=== PATIENT | female | born 1940 | race Hispanic/Latino ===

== ENCOUNTER 2016-10-29 10:04 | Day surgery (SDC) | payer MEDICARE ==
[2016-10-29] MEDS ORDERED: PROLIA SUB-Q ONE (10:23)
[2016-10-29 10:30] VITALS: BP 128/68
== END 2016-10-29 11:07 | disposition home or self-care (01) ==
LOC: OPU 10:04
PROVIDERS: ATTEND Internal Medicine
DX: M81.0 Age-related osteoporosis without current pathological fracture (principal)
CPT/HCPCS: 96372; J0897

== ENCOUNTER 2016-12-26 16:57 | Inpatient (IN) | payer MEDICARE ==
[2016-12-26] MEDS ORDERED: ZOFRAN IV ONE (19:42)
[2016-12-26] MEDS ORDERED: MORPHINE IV ONE (19:42)
--- NOTE | 2016-12-26 19:57 | Emergency Department Report ---
ED Fall HPI - General Chief Complaint: Fall Stated Complaint: RT HIP PAIN Time Seen by Provider: 12/26/16 19:37 Source: patient, EMS Mode of arrival: Ambulatory Limitations: No Limitations - History of Present Illness Initial Comments: 76-year-old female with a past medical history rheumatoid arthritis, and osteoporosis presents to the hospital with complaints of right hip pain status post fall. Patient slipped and fell while going down the stairs today. Complaining of 10/10 right hip pain with spasm. Unable to amylase since fall. Denies head trauma, LOC, or other injury. Patient has seen Dr. Quach orthopedic surgeon in the past for left rotator cuff surgery in 2010. - Related Data Home Medications Medication Instructions Recorded Confirmed Last Taken Biotin 1,000 mcg PO DAILY 04/18/16 12/26/16 10/26/16 1000mg Cholecalciferol (Vitamin D3) 1,000 unit PO DAILY 04/18/16 12/26/16 12/26/16 [Vitamin D3] Folic Acid 1 mg PO QDAY 04/18/16 12/26/16 12/26/16 Methotrexate Sodium [Methotrexate] 2.5 mg PO QMONTH 04/18/16 12/26/16 12/26/16 Prednisone [Prednisone] 5 mg PO DAILY 04/18/16 12/26/16 12/26/16 Timolol 0.5% [Timoptic] 1 drop OD DAILY 04/18/16 12/26/16 12/26/16 Tramadol HCl [traMADol] 50 mg PO BID PRN 04/18/16 12/26/16 12/26/16 Allergies Allergy/AdvReac Type Severity Reaction Status Date / Time celecoxib [From Celebrex] Allergy Rash Verified 04/18/16 10:37 Sulfa (Sulfonamide Allergy Rash Verified 04/18/16 10:37 Antibiotics) hydrocodone AdvReac Shortness Verified 04/18/16 10:37 of Breath oxycodone AdvReac Shortness Verified 04/18/16 10:37 of Breath ED Review of Systems ROS: Stated complaint: RT HIP PAIN Other details as noted in HPI Comment: All other systems reviewed and negative Other: Constitutional: No fevers chills or weight loss Eyes: No eye pain visual changes or discharge ENT: No ear pain or throat pain Neck: Denies pain Respiratory: Denies cough wheezing shortness of breath Cardiovascular: Denies chest pain, palpitations, syncope GI: Denies abdominal pain, nausea, vomiting, diarrhea : Denies dysuria Musculoskeletal: as per hpi Skin: Denies rash, lesions, erythema Neurologic: Denies headache, numbness, weakness Psychiatric: Denies suicidal ideation, hallucinations ED Past Medical Hx - Past Medical History Previous Medical History?: Yes Hx Arthritis: Yes (rheumatoid) Additional medical history: RA, osteoporosis, bilat glaucoma - Surgical History Additional Surgical History: L rotator cuff, 2010 - Social History Smoking Status: Never Smoker - Medications Home Medications: Home Medications Medication Instructions Recorded Confirmed Last Taken Type Biotin 1,000 mcg PO DAILY 04/18/16 12/26/16 10/26/16 History 1000mg Cholecalciferol (Vitamin D3) 1,000 unit PO DAILY 04/18/16 12/26/16 12/26/16 History [Vitamin D3] Folic Acid 1 mg PO QDAY 04/18/16 12/26/16 12/26/16 History Methotrexate Sodium [Methotrexate] 2.5 mg PO QMONTH 04/18/16 12/26/16 12/26/16 History Prednisone [Prednisone] 5 mg PO DAILY 04/18/16 12/26/16 12/26/16 History Timolol 0.5% [Timoptic] 1 drop OD DAILY 04/18/16 12/26/16 12/26/16 History Tramadol HCl [traMADol] 50 mg PO BID PRN 04/18/16 12/26/16 12/26/16 History ED Physical Exam - General Limitations: Physical Limitation - Other Other exam information: General: No limitations, patient is alert in no acute distress Head exam: Atraumatic, normocephalic Eyes exam: Normal appearance ENT: Moist mucous membrane, normal oropharynx Neck exam: Normal inspection, full range of motion Respiratory exam: Clear to auscultation bilateral, no wheezes, rales, crackles Cardiovascular: Normal rate and rhythm, normal heart sounds Abdomen: Soft, nondistended, and nontender, with normal bowel sounds, no rebound, or guarding Extremity: Right hip tenderness to palpation. Right leg is shortened and externally rotated. 2+ DP pulse. Limited movement due to pain Back: Normal Inspection, full range of motion, no tenderness Neurologic: Alert, oriented x3, cranial nerves intact, no motor or sensory deficit ED Course Vital Signs 12/26/16 12/26/16 12/26/16 17:34 17:41 18:00 Temperature 98.5 F Pulse Rate 80 Respiratory 18 Rate Blood Pressure 171/99 171/99 158/77 Blood Pressure [Left] O2 Sat by Pulse 90 97 Oximetry 12/26/16 12/26/16 12/26/16 18:19 19:00 20:00 Temperature Pulse Rate Respiratory 18 Rate Blood Pressure 168/83 175/72 Blood Pressure [Left] O2 Sat by Pulse 99 96 96 Oximetry 12/26/16 20:30 Temperature Pulse Rate 97 H Respiratory 18 Rate Blood Pressure Blood Pressure 151/85 [Left] O2 Sat by Pulse 100 Oximetry - Reevaluation(s) Reevaluation #1: 12/26/16 19:56 Patient reports allergies to hydrocodone and oxycodone and states she has had morphine and tolerated it in the past. Morphine and Zofran ordered. - Consultations Consultation #1: 12/26/16 19:[address] Marte with orthopedic surgery. Will consult for hip fracture recommended admission to hospital ED Medical Decision Making - Lab Data Result diagrams: 12/26/16 22:59 12/26/16 19:49 Lab Results 12/26/16 12/26/16 12/26/16 Range/Units 19:49 19:49 22:59 WBC TNR 16.6 H RBC TNR 4.75 Hgb TNR 14.6 H Hct TNR 44.0 H MCV TNR 93 MCH TNR 31 MCHC TNR 33 RDW TNR 15.3 H Plt Count TNR 187 Sodium 138 (137-145) mmol/L Potassium 3.3 L (3.6-5.0) mmol/L Chloride 100.3 (98-107) mmol/L Carbon Dioxide 24 (22-30) mmol/L Anion Gap 17 mmol/L BUN 11 (7-17) mg/dL Creatinine 0.7 (0.7-1.2) mg/dL Estimated GFR > 60 ml/min BUN/Creatinine Ratio 15.71 % Glucose 120 H (65-100) mg/dL Calcium 8.6 (8.4-10.2) mg/dL - EKG Data -: EKG Interpreted by Me (nsr rate 86, nonspecific st/t abnl) - EKG Data When compared to previous EKG there are: previous EKG unavailable - Radiology Data Radiology results: image reviewed (right femoral neck fxt.) - Medical Decision Making Plan to admit patient to hospital for hip fracture. Orthopedic consulted - Differential Diagnosis fracture, contusion, sprain Critical Care Time: No Critical care attestation.: If time is entered above; I have spent that time in minutes in the direct care of this critically ill patient, excluding procedure time. ED Disposition Clinical Impression: Fracture of femoral neck, right, Hypokalemia Disposition: OP ADMITTED IP TO THIS HOSP Is pt being admited?: Yes Does the pt Need Aspirin: No Condition: Stable Time of Disposition: 19:58 (Dr. Johns/[facility])
[2016-12-26 20:18] LABS: Anion Gap 17 mmol/L; BUN/Creatinine Ratio 15.71; Blood Urea Nitrogen 11 mg/dL (7-17); Calcium 8.6 mg/dL (8.4-10.2); Carbon Dioxide 24 mmol/L (22-30); Chloride 100.3 mmol/L (98-107); Glucose 120 mg/dL (65-100); Potassium 3.3 mmol/L (3.6-5.0); Sodium 138 mmol/L (137-145)
[2016-12-26] MEDS ORDERED: K-DUR PO ONE ×2 (20:39→20:41)
[2016-12-26 21:30] LABS: Red Blood Count TNR M/mm3 (3.65-5.03); White Blood Count TNR K/mm3 (4.5-11.0)
[2016-12-26 21:31] LABS: Hematocrit TNR % (30.3-42.9); Hemoglobin TNR gm/dl (10.1-14.3); Mean Corpuscular HGB Conc TNR % (30-34); Mean Corpuscular Hemoglobin TNR pg (28-32); Mean Corpuscular Volume TNR fl (79-97); Red Cell Distribution Width TNR % (13.2-15.2)
[2016-12-26 21:32] LABS: Mean Platelet Volume TNR fl (6-12); Platelet Count TNR K/mm3 (140-440)
[2016-12-26] MEDS: HEPARIN SUB-Q SCH (22:00)
[2016-12-26] MEDS ORDERED: ZOFRAN IV PRN (22:09)
[2016-12-26] MEDS ORDERED: TYLENOL PO PRN (22:09)
--- NOTE | 2016-12-26 22:17 | History and Physical Report ---
History of Present Illness Date of examination: 12/26/16 Date of admission: 12/26/16 20:05 Chief complaint: Right hip pains History of present illness: Patient is a 76 yo woman with a history of RA on MTX and steroids, osteoporosis and glaucoma who presents with acute severe nonradiating right hip pain after a mechanical fall down her steps at home. Patient has no prodromal symptoms. She denies any chest pain or sob. After the fall on her right hip she cannot get up and had severe pain. She was found have right hip fracture and Ortho was called but they want the hospitalist to admit. Past History Past Medical History: other (as hpi) Past Surgical History: cataract removal, Other (left rotator cuff surgery, back surgery) Social history: full code. denies: smoking, alcohol abuse, prescription drug abuse, IV drug use Family history: no significant family history Medications and Allergies Allergies Allergy/AdvReac Type Severity Reaction Status Date / Time celecoxib [From Celebrex] Allergy Rash Verified 04/18/16 10:37 Sulfa (Sulfonamide Allergy Rash Verified 04/18/16 10:37 Antibiotics) hydrocodone AdvReac Shortness Verified 04/18/16 10:37 of Breath oxycodone AdvReac Shortness Verified 04/18/16 10:37 of Breath Home Medications Medication Instructions Recorded Confirmed Last Taken Type Biotin 1,000 mcg PO DAILY 04/18/16 12/26/16 10/26/16 History 1000mg Cholecalciferol (Vitamin D3) 1,000 unit PO DAILY 04/18/16 12/26/16 12/26/16 History [Vitamin D3] Folic Acid 1 mg PO QDAY 04/18/16 12/26/16 12/26/16 History Methotrexate Sodium [Methotrexate] 2.5 mg PO QMONTH 04/18/16 12/26/16 12/26/16 History Prednisone [Prednisone] 5 mg PO DAILY 04/18/16 12/26/16 12/26/16 History Timolol 0.5% [Timoptic] 1 drop OD DAILY 04/18/16 12/26/16 12/26/16 History Tramadol HCl [traMADol] 50 mg PO BID PRN 04/18/16 12/26/16 12/26/16 History Active Meds: Active Medications Acetaminophen (Tylenol) 650 mg PO Q6H PRN PRN Reason: Non Cardiac Pain or Temp>100.5 Methotrexate (Methotrexate(Dose Weekly Only)) 2.5 mg PO QMONTH [facility]ENNY Miscellaneous Medication (Cholecalciferol (Vitamin D3) [Vitamin D3]) 1,000 unit PO DAILY [facility]ENNY Miscellaneous Medication (Folic Acid [Folic Acid]) 1 mg PO QDAY [facility] Ondansetron HCl (Zofran) 4 mg IV Q4H PRN PRN Reason: Nausea And Vomiting Prednisone (Deltasone) 5 mg PO DAILY [facility] Timolol Maleate (Timoptic) drops OD DAILY [facility] Tramadol HCl (Ultram) 50 mg PO BID PRN PRN Reason: Analgesia Review of Systems All systems: negative (as HPI and all other ROS reviewed and negative.) Exam - Physical Exam Narrative exam: GEN: WDWN, NAD, AWAKE, ALERT, ORIENTATED 3 HEENT: NCAT, PERRL, EOMI, OP CLEAR NECK: SUPPLE, NO THYROMEGALY, NO JVD, NO LAD CVS: RRR, NORMAL S1S2 LUNGS/CHEST: CTA B, NORMAL CHEST EXPANSION B, GOOD AIR ENTRY B ABD: SOFT NTND, GBS, NO REBOUND OR GUARDING EXT/SKIN: NO SIGNIFICANT EDEMA OR RASH MSK: LROM right hip, righ leg is shortened and turned outward NEURO: CN 2-12 GROSSLY INTACT, NO new FOCAL DEFICITS PSY: CALM - Constitutional Vitals: Temp Pulse Resp BP Pulse Ox 98.5 F 97 H 18 151/85 100 12/26/16 17:41 12/26/16 20:30 12/26/16 20:30 12/26/16 20:30 12/26/16 20:30 Results - Labs CBC & Chem 7: 12/26/16 19:49 12/26/16 19:49 - Imaging and Cardiology Chest x-ray: other (hip) Assessment and Plan Patient is a 76 yo woman with a history of RA on MTX and steroids, osteoporosis and glaucoma who presents with acute severe nonradiating constant right hip pain after a mechanical fall down her steps at home. There is no aggravating or relieving factors. Patient had no prodromal symptoms. She denies any chest pain or sob. No head trauma. After the fall on her right hip she cannot get up and had severe pain. She was found have right hip fracture and Ortho was called but they want the hospitalist to admit. -Right hip fracture: surgery -Accelerated bp without dx: prn iv hydralazine and control pain -Leukocytosis on chronic steroids: continue to monitor -hypokalemia: replace -dvt prophylaxis; sq heparin
[2016-12-26] MEDS: K-DUR PO ONE ×2 (22:34→22:57)
[2016-12-26] MEDS: FOLVITE PO SCH (22:34)
[2016-12-26] MEDS: ULTRAM PO PRN (22:35)
[2016-12-26] MEDS: APRESOLINE IV PRN (22:35)
[2016-12-26] MEDS: DELTASONE PO SCH (22:37)
[2016-12-26] MEDS: VITAMIN D3 PO SCH (22:37)
[2016-12-26 23:14] LABS: Hemoglobin 14.6 gm/dl (10.1-14.3); Mean Corpuscular HGB Conc 33 % (30-34); Mean Corpuscular Hemoglobin 31 pg (28-32); Mean Corpuscular Volume 93 fl (79-97); Platelet Count 187 K/mm3 (140-440); Red Blood Count 4.75 M/mm3 (3.65-5.03); Red Cell Distribution Width 15.3 % (13.2-15.2); White Blood Count 16.6 K/mm3 (4.5-11.0)
[2016-12-27] MEDS ORDERED: TORADOL IV ONE ×2 (05:17→09:53)
[2016-12-27 05:51] LABS: Hematocrit 43.1 % (30.3-42.9); Hemoglobin 14.1 gm/dl (10.1-14.3); Mean Corpuscular HGB Conc 33 % (30-34); Mean Corpuscular Hemoglobin 31 pg (28-32); Mean Corpuscular Volume 94 fl (79-97); Platelet Count 185 K/mm3 (140-440); White Blood Count 16.3 K/mm3 (4.5-11.0)
[2016-12-27 06:00] LABS: INR 1.08 (0.87-1.13)
[2016-12-27 06:01] LABS: Partial Thromboplastin Time 27.5 Sec. (24.2-36.6)
[2016-12-27 06:16] LABS: Anion Gap 20 mmol/L; Blood Urea Nitrogen 9 mg/dL (7-17); Calcium 8.1 mg/dL (8.4-10.2); Carbon Dioxide 21 mmol/L (22-30); Chloride 105.6 mmol/L (98-107); Glucose 123 mg/dL (65-100); Potassium 3.9 mmol/L (3.6-5.0); Sodium 143 mmol/L (137-145)
[2016-12-27] MEDS ORDERED: TORADOL ONE (07:40)
[2016-12-27] MEDS ORDERED: MORPHINE ONE (07:40)
[2016-12-27] MEDS ORDERED: ANCEF/STERILE WATER 2 GM/20 ML 2 GM/20 ML SYRINGE IV ONE (07:41)
[2016-12-27] MEDS ORDERED: NACL 0.9% 100 ML ONE ×3 (07:44→10:01)
[2016-12-27] MEDS ORDERED: TRANEXAMIC ACID ONE (07:44)
[2016-12-27] MEDS: NACL 0.9% 1000 ML 1,000 ML IV SCH ×2 (07:50)
[2016-12-27] MEDS ORDERED: SUBLIMAZE ONE (08:40)
[2016-12-27] MEDS ORDERED: DIPRIVAN 10 MG/ML IV ONE (08:40)
[2016-12-27] MEDS ORDERED: XYLOCAINE MPF 2% ONE (08:41)
[2016-12-27] MEDS ORDERED: NACL 0.9% 1000 ML 1,000 ML ONE (08:59)
--- NOTE | 2016-12-27 09:04 | Anesthesia Day of Surgery ---
Anesthesia Day of Surgery - Day of Surgery Patient Examined: Yes Patient H&P Reviewed: Yes Patient is NPO: Yes
--- NOTE | 2016-12-27 09:04 | Anesthesia Consultation ---
Anesthesia Consult and Med Hx Date of service: 12/27/16 - Airway Anesthetic Teeth Evaluation: Good ROM Head & Neck: Adequate Mental/Hyoid Distance: Adequate Mallampati Class: Class I Intubation Access Assessment: Probably Good - Pulmonary Exam CTA: Yes - Cardiac Exam Cardiac Exam: RRR - Pre-Operative Health Status ASA Pre-Surgery Classification: ASA3 Proposed Anesthetic Plan: General - Pulmonary Hx Smoking: No - Cardiovascular System Hx Hypertension: Yes - Central Nervous System Hx Neuromuscular Disorder: Yes (RA) Hx Psychiatric Problems: Yes - Other Systems Hx Cancer: No
[2016-12-27] MEDS ORDERED: VERSED ONE (09:16)
[2016-12-27] MEDS ORDERED: ZOFRAN ONE (09:35)
[2016-12-27] MEDS ORDERED: DECADRON ONE (09:35)
[2016-12-27] MEDS ORDERED: TRANEXAMIC ACID IV ONE (09:50)
[2016-12-27] MEDS ORDERED: NACL 0.9% IV ONE ×2 (09:50→09:53)
[2016-12-27] MEDS ORDERED: WATER FOR IRRIG STERILE IR ONE (09:53)
[2016-12-27] MEDS ORDERED: MARCAINE-EPI 0.5%-1:200,000 INFILTRATI ONE ×2 (09:53)
[2016-12-27] MEDS ORDERED: NACL 0.9% IR ONE (09:53)
[2016-12-27] MEDS ORDERED: MORPHINE IM ONE (09:53)
--- NOTE | 2016-12-27 09:58 | XRay Report ---
RIGHT HIP, 2 VIEWS HISTORY: Right hip pain after fall. FINDINGS: Mild osteopenia is suspected. A transverse fracture is identified through the mid to distal right femoral neck with 0.5 cm superolateral displacement. The right femoral head remains well-seated within the right acetabulum. No pelvic fracture is detected. Lower lumbar fusion changes at L5-S1 are noted. IMPRESSION: Right femoral neck fracture.
[2016-12-27] MEDS ORDERED: NEO SYNEPHRINE ONE (10:01)
--- NOTE | 2016-12-27 10:43 | Progress Note ---
Assessment and Plan Assessment and plan: Patient is a 76 yo woman with a history of RA on MTX and steroids, osteoporosis and glaucoma who presents with acute severe nonradiating constant right hip pain after a mechanical fall down her steps at home. She was found have right femoral neck fracture and Ortho was consulted. She had right hip arthroplasty today. -Right hip femoral neck fracture: Status post cemented right hip hemiarthroplasty. We will consult physical therapy. -Accelerated hypertension without dx: prn iv hydralazine and control pain -Leukocytosis on chronic steroids: continue to monitor -hypokalemia: replace -dvt prophylaxis; sq heparin History Interval history: Patient seen and examined. Medical records and medication list reviewed. No acute event overnight noted by the RN. Patient denies any chest pain or difficulty breathing. Patient has tolerated the surgery today. Discussed plan of care at bedside with patient. Hospitalist Physical - Physical exam Narrative exam: GENERAL: Elderly white female lying on bed appeared to be in no discomfort. HEENT: Normocephalic. Atraumatic. No conjunctival congestion or icterus. Patient has moist mucous membranes. NECK: Supple. Trachea midline. CHEST/LUNGS: Clear to auscultated bilaterally, breathing nonlabored. No wheezes crackles or rhonchi. HEART/CARDIOVASCULAR: Regular in rate and rhythm. S1 and S2 positive. ABDOMEN: Abdomen is soft, nontender. Patient has normal bowel sounds. SKIN: There is no rash. Warm and dry. NEURO: No focal motor deficit. Follows command. MUSCULOSKELETAL: Wound dressing along the lateral side of right hip joint with restricted right hip joint movement EXTRIMITY: No edema, no cyanosis or clubbing. PSYCH: Cooperative. - Constitutional Vitals: Temp Pulse Resp BP Pulse Ox 98.9 F 101 H 16 169/87 95 12/27/16 08:50 12/27/16 09:00 12/27/16 09:00 12/27/16 09:00 12/27/16 10:24 Results - Labs CBC & Chem 7: 12/27/16 05:05 12/27/16 05:05 Labs: Laboratory Last Values WBC 16.3 K/mm3 (4.5-11.0) H 12/27/16 05:05 RBC 4.60 M/mm3 (3.65-5.03) 12/27/16 05:05 Hgb 14.1 gm/dl (10.1-14.3) 12/27/16 05:05 Hct 43.1 % (30.3-42.9) H 12/27/16 05:05 MCV 94 fl (79-97) 12/27/16 05:05 MCH 31 pg (28-32) 12/27/16 05:05 MCHC 33 % (30-34) 12/27/16 05:05 RDW 15.0 % (13.2-15.2) 12/27/16 05:05 Plt Count 185 K/mm3 (140-440) 12/27/16 05:05 PT 13.9 Sec. (12.2-14.9) 12/27/16 05:05 INR 1.08 (0.87-1.13) 12/27/16 05:05 APTT 27.5 Sec. (24.2-36.6) 12/27/16 05:05 Sodium 143 mmol/L (137-145) 12/27/16 05:05 Potassium 3.9 mmol/L (3.6-5.0) 12/27/16 05:05 Chloride 105.6 mmol/L (98-107) 12/27/16 05:05 Carbon Dioxide 21 mmol/L (22-30) L 12/27/16 05:05 Anion Gap 20 mmol/L 12/27/16 05:05 BUN 9 mg/dL (7-17) 12/27/16 05:05 Creatinine 0.6 mg/dL (0.7-1.2) L 12/27/16 05:05 Estimated GFR > 60 ml/min 12/27/16 05:05 BUN/Creatinine Ratio 15.00 % 12/27/16 05:05 Glucose 123 mg/dL (65-100) H 12/27/16 05:05 Calcium 8.1 mg/dL (8.4-10.2) L 12/27/16 05:05
--- NOTE | 2016-12-27 11:38 | Consultation ---
History of Present Illness - [facility] Consult date: 12/27/16 Consult reason: fracture History of present illness: 76 yo woman with a history of RA on MTX and steroids, osteoporosis and glaucoma who presents with acute severe nonradiating right hip pain after a mechanical fall down her steps at home. Patient has no prodromal symptoms. She denies any chest pain or sob. After the fall on her right hip she cannot get up and had severe pain. X-rays taken in the emergency room reveal a displaced right femoral neck fracture. Consulted regarding treatment for her fractured right hip. Past History Past Medical History: other (as hpi) Past Surgical History: cataract removal, Other (left rotator cuff surgery, back surgery) Social history: full code. denies: smoking, alcohol abuse, prescription drug abuse, IV drug use Family history: no significant family history Medications and Allergies Allergies Allergy/AdvReac Type Severity Reaction Status Date / Time celecoxib [From Celebrex] Allergy Rash Verified 04/18/16 10:37 Sulfa (Sulfonamide Allergy Rash Verified 04/18/16 10:37 Antibiotics) hydrocodone AdvReac Shortness Verified 04/18/16 10:37 of Breath oxycodone AdvReac Shortness Verified 04/18/16 10:37 of Breath Home Medications Medication Instructions Recorded Confirmed Last Taken Type Biotin 1,000 mcg PO DAILY 04/18/16 12/26/16 10/26/16 History 1000mg Cholecalciferol (Vitamin D3) 1,000 unit PO DAILY 04/18/16 12/26/16 12/26/16 History [Vitamin D3] Folic Acid 1 mg PO QDAY 04/18/16 12/26/16 12/26/16 History Methotrexate Sodium [Methotrexate] 2.5 mg PO QMONTH 04/18/16 12/26/16 12/26/16 History Prednisone [Prednisone] 5 mg PO DAILY 04/18/16 12/26/16 12/26/16 History Timolol 0.5% [Timoptic] 1 drop OD DAILY 04/18/16 12/26/16 12/26/16 History Tramadol HCl [traMADol] 50 mg PO BID PRN 04/18/16 12/26/16 12/26/16 History Active Meds: Active Medications Acetaminophen (Tylenol) 650 mg PO Q6H PRN PRN Reason: Non Cardiac Pain or Temp>100.5 Cholecalciferol (Vitamin D3) 1,000 unit PO DAILY [facility] Last Admin: 12/26/16 22:37 Dose: 1,000 unit Enoxaparin Sodium (Lovenox) 40 mg SUB-Q QDAY [facility] Folic Acid (Folvite) 1 mg PO QDAY [facility] Last Admin: 12/26/16 22:34 Dose: 1 mg Heparin Sodium (Porcine) (Heparin) 5,000 unit SUB-Q Q12HR [facility] Last Admin: 12/26/16 22:00 Dose: 5,000 unit Hydralazine HCl (Apresoline) 10 mg IV Q4H PRN PRN Reason: Blood Pressure Last Admin: 12/26/16 22:35 Dose: 10 mg Hydromorphone HCl (Dilaudid) 0.5 mg IV Q10MIN PRN PRN Reason: Pain , Severe (7-10) Stop: 12/30/16 10:34 Sodium Chloride (Nacl 0.9% 1000 Ml) 1,000 mls @ 100 mls/hr IV DIRECT [facility] Last Admin: 12/27/16 07:50 Dose: 100 mls/hr Cefazolin Sodium (Ancef/Ns 1 Gm/50 Ml) 1 gm in 50 mls @ 100 mls/hr IV Q8H [facility] Stop: 12/27/16 20:29 Methotrexate (Methotrexate(Dose Weekly Only)) 2.5 mg PO QMONTH [facility] Ondansetron HCl (Zofran) 4 mg IV Q4H PRN PRN Reason: Nausea And Vomiting Pantoprazole Sodium (Protonix) 40 mg IV QDAY [facility] Prednisone (Deltasone) 5 mg PO DAILY [facility] Last Admin: 12/26/16 22:37 Dose: 5 mg Sodium Chloride (Sodium Chloride Flush Syringe 10 Ml) 10 ml IV PRN NR Timolol Maleate (Timoptic) 1 drops OD DAILY [facility] Tramadol HCl (Ultram) 50 mg PO BID PRN PRN Reason: Analgesia Last Admin: 12/26/16 22:35 Dose: 50 mg Physical Examination - Physical exam Narrative exam: Alert and oriented elderly female in moderate distress. Significant orthopedic or musculoskeletal findings relates to the lower extremities, on the right the patient was noted to have shortening and external rotation, she was tender at the groin passive range of motion limited secondary to pain in her Baxter status was intact X-rays taken in the emergency room were reviewed by me and show a displaced femoral neck fracture with no evidence of malignancy in the bone or surrounding soft tissue Assessment and Plan Assessment - displaced right femoral neck fracture Plan - patient will require partial hip replacement using a bipolar components
[2016-12-27] MEDS: DILAUDID IV PRN ×2 (11:40→11:50)
--- NOTE | 2016-12-27 11:50 | Procedure Note ---
Date of procedure: 12/27/16 Pre-op diagnosis: right femoral neck fracture Post-op diagnosis: same Procedure: Procedure cemented bipolar hemiarthroplasty Indications 76-year-old female who slipped and fell at home as staining a displace intracapsular right femoral neck fracture, patient has a history of rheumatoid arthritis and has been on oral steroids for the past 20 years. She has a history of osteoporosis Procedure The patient was brought to your on a regular hospital bed she was then given general endotracheal and to intubation neck she was placed onto the or table in a left lateral decubitus position at which point the right hip was prepped and draped in the usual sterile manner. A timeout procedure was done to identify the proper operative site and incision was made over the lateral border of the proximal femur this is carried up superiorly over the greater trochanter this is then taken down to skin and subcutaneous tissue the fascia antonio was incised next using a Cory retractor the soft tissues were retracted out of the operative field next the incision was taken down to the vastus lateralis and portions of the gluteus medius anterior capsule was entered the thigh was rotated in external manner revealing the fracture along the femoral neck using a small broach template rating portion of the femoral neck was osteotomized using a oscillating saw next the femoral head was retrieved and measured with a caliper. This measurement revealed a 45 mm head, next the proximal femur was reamed and broached to a #6 cemented stem care was taken to remove any excess bone and soft tissue Yves spacer was placed approximately 14 cm down the shaft neck C a cement was mixed and was placed into the femoral canal A #6 cemented stem was placed in the canal and a proper position hardening of the cement the neck length was measured and revealed a 10 mm length long with a 46 mm head or cup. Hip was reduced taken through range of motion and was found to be stable next a trial neck and head was removed and the final components were placed. Again the hip was reduced and taken to or range of motion and was found to be stable next A elbow was copiously irrigated a cocktail sustaining of Toradol morphine and Marcaine was inserted or injected to the surrounding soft tissue. The wound was then closed in a standard layered fashion getting with the capsule tendons fascia antonio subcutaneous and finally skin. Routine postoperative dressings were applied the patient tolerated procedure there are no complications. She was taken to the postanesthesia recovery in a stable condition Anesthesia: JANELLE Surgeon: SILVER WOODARD Estimated blood loss: other (300) Specimen disposition: to lab Condition: stable Disposition: PACU
[2016-12-27] MEDS ORDERED: SODIUM CHLORIDE FLUSH SYRINGE 10 ML IV NR (12:00)
[2016-12-27] MEDS: VITAMIN D3 PO SCH (13:16)
[2016-12-27] MEDS: PROTONIX IV SCH (13:17)
[2016-12-27] MEDS: TIMOPTIC OD SCH (13:17)
[2016-12-27] MEDS: FOLVITE PO SCH (13:18)
[2016-12-27] MEDS: DELTASONE PO SCH (13:45)
[2016-12-27] MEDS: ANCEF/NS 1 GM/50 ML 1 GM/50 ML BAG IV SCH ×2 (15:12→23:07)
[2016-12-27] MEDS: HEPARIN SUB-Q SCH ×2 (20:05→21:32)
--- NOTE | 2016-12-27 22:28 | Admit Criteria Form ---
Admission Criteria Documentation: AMBULATORY SURGERY EXCEPTION CRITERIA Ambulatory Surgery Exception Criteria ( Place 'X' for any and all applicable criteria): Surgery or procedure performed on ambulatory basis may require inpatient stay for[A] ANY ONE of the following(1)(2)(3)(4)(5)(6)(7)(8)(9): [X] I. A preoperative situation, condition, or finding that warrants inpatient stay as indicated by ANY ONE of the following: [] a) Inpatient care needed because of severity of a disease or condition rather than the surgery (eg, severe cardiac or respiratory disease, severe infection) (15) (16 ) (17) (18) [] b) Emergent procedure (eg, angioplasty for acute ischemia)(19) [] c) Complex surgical approach or situation as indicated by ANY ONE of the following(3): [] i) Open approach needed instead of usual endoscopic, transcatheter, or other less invasive procedure [] ii) Difficult approach because of previous operation [] iii) Airway monitoring required after open neck procedures(20)(21) [] iv) Large mass requiring unusually extensive dissection [] v) Additional complicating feature requiring inpatient care (eg, drain management)(22(23): [X] d) Major surgery in a pt with high anesthetic risk as indicated by ANY ONE of the following (2)(3)(5)(7)(8): [X] i) ASA risk class III or higher (severe systemic disease impairing function) [D] [] ii) Advanced age (eg, older than 85 years)(14)(24) [] iii) Symptomatic heart failure(25) [] iv) Symptomatic asthma or COPD(8)(21) [] v) Morbid obesity with hemodynamic or respiratory problems(20)( 21)(26)(27) [] vi) Obstructive sleep apnea(20)(21) [] vii) Former premature infants who are younger than 60 weeks [] viii) High risk for severe postoperative abnormalities (eg, severe postoperative hypocalcemia after parathyroidectomy for severe hyperparathyroidism)(27)( 28) [] ix) Unstable angina(25) [] e) Drug-related risk requiring inpatient stay as indicated by ANY ONE of the following(5)(10)(14)(32)(33) [] i) Procedure requires discontinuing drugs or other therapy (eg , antiarrhythmic medication, antiseizure medication), which necessitates inpatient observation or treatment.(18)(31) [] ii) Major surgery and high risk drug use as indicated by ANY ONE of the following: [] 1) Active abuse of cocaine or similar drug [] 2) Monoamine oxidase inhibitor use [] 3) Other drug identified as posing risk [] f) Inadequate outpatient care situation as indicated by ANY ONE of the following(5)(10)(14)(32)(33) [] i) Patient lives remote from medical facility and procedure has urgent complication potential, and temporary nearby residence cannot be arranged [] ii) Patient will have postprocedure incapacitation and inadequate assistance at home, or alternative level of care cannot be arranged. [] iii) Patient will have long general anesthesia or procedure side effect resolution time, and competent person to stay with patient on first postoperative night at home or alternative level of care cannot be arranged. []iv) Other inadequate outpatient situation that cannot be handled by other means [] II. A perioperative event, condition, or finding that warrants inpatient stay as indicated by ANY ONE of the following (1)(2)(3): [] a) Inadequate physiologic recovery: cardiovascular, respiratory, or hemodynamic status not normal or near preoperative baseline(18) [] b) Hemodynamic instability [] c) Patient not alert with near normal or baseline mental status [] d) Temperature not normal or as expected and not appropriate for outpatient treatment of condition [] e) Ambulatory or appropriate activity level status not yet achieved post procedure [E](34)(35)(36) [] f) Operative site not appropriate (eg, unexpected or excessive drainage or bleeding) [] g) Postoperative effects not resolved or adequately managed (eg, significant pain or vomiting not appropriate for outpatient or next level of care)(10)(12) [] h) Complicating features requiring inpatient care as indicated by ANY ONE of the following(37): [] i) Severe complications of procedure (eg, bowel injury, airway compromise, vascular injury,severe hemorrhage) [] ii) Extensive (eg, dissection far beyond usual scope of procedure ) or prolonged (eg, 120 minutes beyond usual) surgery needed requiring inpatient postoperative care [] iii) Conversion to an open or complex procedure that requires inpatient care (eg, open vs laparoscopic cholecystectomy, abdominal vs vaginal hysterectomy)(38) [] iv) Comorbid condition or test result identified during or post procedure that requires inpatient care (7) [] v) Malignant hyperthermia(30) [] vi) Other complicating feature requiring inpatient care(22)(23) Inpatient stay may be needed until ALL of the following are present (1)(2)(3)(4) (5)(6)(10)(14)(33)(40): []a) Physiologic recovery: cardiovascular, respiratory, and hemodynamic status normal or near preoperative baseline []b) Hemodynamic stability []c) Patient alert, with near normal or baseline mental status []d) Temperature appropriate: patient afebrile or temperature appropriate for outpt treatment of condition []e) Activity level appropriate: ambulatory or appropriate activity level post procedure []f) Operative site appropriate as indicated by ALL of the following: []i) Site dry or with expected drainage []ii) Any blood noted is as expected for procedure. []g) Postoperative effects resolved or managed as indicated by ALL of the following: []i) Pain management appropriate for outpatient (or next level of) care(10) []ii) Minimal nausea and vomiting: if present, successfully treated with oral medication(12) []iii) Headache, dizziness, or drowsiness (if present) are mild. []h) Voiding status acceptable as indicated by ANY ONE of the following: []i) Voiding spontaneously []ii) No voiding but instructions given for follow-up in 6 to 8 hours []iii) Urinary catheter in place, and instructions given for follow-up []i) Complicating features requiring inpatient care manageable at a lower level of care(37) []j) Comorbid conditions manageable at a lower level of care(37) The original [employer] content created by [employer] has been revised. The portions of the content which have been revised are identified through the use of italic text or in bold, and [facility] [employer] has neither reviewed nor approved the modified material. All other unmodified content is copyright [employer]. Please see references footnoted in the original [employer] edition 2016 Admission Criteria Met: Yes
[2016-12-27] MEDS: ULTRAM PO PRN (23:06)
[2016-12-27] MEDS: XALATAN 0.005% OU SCH (23:31)
[2016-12-28] MEDS: NACL 0.9% 1000 ML 1,000 ML IV SCH ×2 (00:12→09:55)
[2016-12-28] MEDS: ULTRAM PO PRN (09:38)
[2016-12-28] MEDS: FOLVITE PO SCH (09:38)
[2016-12-28] MEDS: PROTONIX IV SCH (09:39)
[2016-12-28] MEDS: VITAMIN D3 PO SCH (09:39)
[2016-12-28] MEDS: DELTASONE PO SCH (09:39)
[2016-12-28] MEDS: TIMOPTIC OD SCH (09:40)
[2016-12-28] MEDS: LOVENOX SUB-Q SCH (09:41)
[2016-12-28 11:54] LABS: Hematocrit 37.3 % (30.3-42.9); Hemoglobin 12.3 gm/dl (10.1-14.3)
[2016-12-28] MEDS ORDERED: PERCOCET 5/325 PO PRN (12:04)
--- NOTE | 2016-12-28 12:04 | Progress Note ---
Assessment and Plan Assessment and plan: Patient is a 76 yo woman with a history of RA on MTX and steroids, osteoporosis and glaucoma who presents with acute severe nonradiating constant right hip pain after a mechanical fall down her steps at home. She was found to have right femoral neck fracture and Ortho was consulted. She had right hip arthroplasty 12/27/16. 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 -Physical therapy eval pending. Accelerated hypertension - present on admission, No h/o HTN - Likley due to rt hip pain, - prn iv hydralazine and control pain. BP much improved now Leukocytosis - likely due to chronic steroids use: -continue to monitor H/O Rheumatoid Arthritis - cont home dose of steroid 5mg po and methotrexate 10mg qweekly hypokalemia: replace as needed DVT prophylaxis; sq lovenox History Interval history: Patient seen and examined. Medical records and medication list reviewed. No acute event overnight noted by the RN. Patient c/o rt hip pain, did not get up frpm bed today Discussed plan of care at bedside with patient. Hospitalist Physical - Physical exam Narrative exam: GENERAL: Elderly white female lying on bed appeared to be in no discomfort. HEENT: Normocephalic. Atraumatic. No conjunctival congestion or icterus. Patient has moist mucous membranes. NECK: Supple. Trachea midline. CHEST/LUNGS: Clear to auscultated bilaterally, breathing nonlabored. No wheezes crackles or rhonchi. HEART/CARDIOVASCULAR: Regular in rate and rhythm. S1 and S2 positive. ABDOMEN: Abdomen is soft, nontender. Patient has normal bowel sounds. SKIN: There is no rash. Warm and dry. NEURO: No focal motor deficit. Follows command. MUSCULOSKELETAL: Wound dressing along the lateral side of right hip joint with restricted right hip joint movement EXTRIMITY: No edema, no cyanosis or clubbing. PSYCH: Cooperative. - Constitutional Vitals: Temp Pulse Resp BP Pulse Ox 98.7 F 97 H 18 123/73 95 12/28/16 12:00 12/28/16 12:00 12/28/16 12:00 12/28/16 12:00 12/28/16 12:00 Results - Labs CBC & Chem 7: 12/28/16 11:33 12/27/16 05:05 Labs: Laboratory Last Values WBC 16.3 K/mm3 (4.5-11.0) H 12/27/16 05:05 RBC 4.60 M/mm3 (3.65-5.03) 12/27/16 05:05 Hgb 12.3 gm/dl (10.1-14.3) 12/28/16 11:33 Hct 37.3 % (30.3-42.9) 12/28/16 11:33 MCV 94 fl (79-97) 12/27/16 05:05 MCH 31 pg (28-32) 12/27/16 05:05 MCHC 33 % (30-34) 12/27/16 05:05 RDW 15.0 % (13.2-15.2) 12/27/16 05:05 Plt Count 185 K/mm3 (140-440) 12/27/16 05:05 PT 13.9 Sec. (12.2-14.9) 12/27/16 05:05 INR 1.08 (0.87-1.13) 12/27/16 05:05 APTT 27.5 Sec. (24.2-36.6) 12/27/16 05:05 Sodium 143 mmol/L (137-145) 12/27/16 05:05 Potassium 3.9 mmol/L (3.6-5.0) 12/27/16 05:05 Chloride 105.6 mmol/L (98-107) 12/27/16 05:05 Carbon Dioxide 21 mmol/L (22-30) L 12/27/16 05:05 Anion Gap 20 mmol/L 12/27/16 05:05 BUN 9 mg/dL (7-17) 12/27/16 05:05 Creatinine 0.6 mg/dL (0.7-1.2) L 12/27/16 05:05 Estimated GFR > 60 ml/min 12/27/16 05:05 BUN/Creatinine Ratio 15.00 % 12/27/16 05:05 Glucose 123 mg/dL (65-100) H 12/27/16 05:05 Calcium 8.1 mg/dL (8.4-10.2) L 12/27/16 05:05
[2016-12-28] MEDS ORDERED: MORPHINE IV PRN (13:00)
--- NOTE | 2016-12-28 16:59 | Progress Note ---
Assessment and Plan continue observation, begin PT in am Subjective Date of service: 12/28/16 Interval history: c/o incisional pain otherwise ok, did not get out of bed today bcoz no PT services on thursday Objective Vital signs: Vital Signs - 12hr 12/28/16 12/28/16 12/28/16 05:57 07:00 12:00 Temperature 100.2 F H 99 F 98.7 F Pulse Rate [ 94 H 74 97 H Left Brachial] Respiratory 20 18 18 Rate Blood Pressure 123/77 123/73 [Left Arm] O2 Sat by Pulse 95 93 95 Oximetry 12/28/16 16:00 Temperature 98.5 F Pulse Rate [ 95 H Left Brachial] Respiratory 18 Rate Blood Pressure 108/65 [Left Arm] O2 Sat by Pulse 95 Oximetry - Labs CBC & BMP: 12/28/16 11:33 12/27/16 05:05
[2016-12-28] MEDS ORDERED: ULTRAM PO PRN (18:44)
[2016-12-28] MEDS: XALATAN 0.005% OU SCH (21:59)
[2016-12-29] MEDS: HEPARIN SUB-Q SCH
[2016-12-29] MEDS: NACL 0.9% 1000 ML 1,000 ML IV SCH ×2 (01:52→16:21)
[2016-12-29] MEDS: ULTRAM PO PRN ×4 (03:39→22:58)
[2016-12-29] MEDS: VITAMIN D3 PO SCH (09:28)
[2016-12-29] MEDS: FOLVITE PO SCH (09:28)
[2016-12-29] MEDS: LOVENOX SUB-Q SCH (09:28)
[2016-12-29] MEDS: DELTASONE PO SCH (09:29)
[2016-12-29] MEDS: PROTONIX PO SCH (09:29)
[2016-12-29] MEDS: TIMOPTIC OD SCH (09:29)
--- NOTE | 2016-12-29 14:58 | Progress Note ---
Assessment and Plan Assessment and plan: Patient is a 76 yo woman with a history of RA on MTX and steroids, osteoporosis and glaucoma who presents with acute severe non radiating constant right hip pain after a mechanical fall down her steps at home. She was found to have right femoral neck fracture and Ortho was consulted. She had right hip arthroplasty 12/27/16. Right hip femoral neck fracture: - likely due to steroid induced osteoporosis -Status post cemented right hip hemiarthroplasty. -Physical therapy recommended skilled PT, CM notified Accelerated hypertension - present on admission, No h/o HTN - Likley due to rt hip pain, - prn iv hydralazine and control pain. BP much improved now Leukocytosis - likely due to chronic steroids use: -continue to monitor H/O Rheumatoid Arthritis - cont home dose of steroid 5mg po and methotrexate 10mg qweekly hypokalemia: replace as needed DVT prophylaxis; sq lovenox Disposition: skilled PT History Interval history: Patient seen and examined. Medical records and medication list reviewed. No acute event overnight noted by the RN. Patient c/o rt hip pain, had PT eval today, recommended skilled PT Discussed plan of care at bedside with patient. Hospitalist Physical - Physical exam Narrative exam: GENERAL: Elderly white female lying on bed appeared to be in no discomfort. HEENT: Normocephalic. Atraumatic. No conjunctival congestion or icterus. Patient has moist mucous membranes. NECK: Supple. Trachea midline. CHEST/LUNGS: Clear to auscultated bilaterally, breathing nonlabored. No wheezes crackles or rhonchi. HEART/CARDIOVASCULAR: Regular in rate and rhythm. S1 and S2 positive. ABDOMEN: Abdomen is soft, nontender. Patient has normal bowel sounds. SKIN: There is no rash. Warm and dry. NEURO: No focal motor deficit. Follows command. MUSCULOSKELETAL: Wound dressing along the lateral side of right hip joint with restricted right hip joint movement EXTRIMITY: No edema, no cyanosis or clubbing. PSYCH: Cooperative. - Constitutional Vitals: Temp Pulse Resp BP Pulse Ox 99.3 F 75 20 156/97 94 12/29/16 04:00 12/29/16 07:44 12/29/16 09:33 12/29/16 04:00 12/29/16 10:00 Results - Labs CBC & Chem 7: 12/28/16 11:33 12/27/16 05:05 Labs: Laboratory Last Values WBC 16.3 K/mm3 (4.5-11.0) H 12/27/16 05:05 RBC 4.60 M/mm3 (3.65-5.03) 12/27/16 05:05 Hgb 12.3 gm/dl (10.1-14.3) 12/28/16 11:33 Hct 37.3 % (30.3-42.9) 12/28/16 11:33 MCV 94 fl (79-97) 12/27/16 05:05 MCH 31 pg (28-32) 12/27/16 05:05 MCHC 33 % (30-34) 12/27/16 05:05 RDW 15.0 % (13.2-15.2) 12/27/16 05:05 Plt Count 185 K/mm3 (140-440) 12/27/16 05:05 PT 13.9 Sec. (12.2-14.9) 12/27/16 05:05 INR 1.08 (0.87-1.13) 12/27/16 05:05 APTT 27.5 Sec. (24.2-36.6) 12/27/16 05:05 Sodium 143 mmol/L (137-145) 12/27/16 05:05 Potassium 3.9 mmol/L (3.6-5.0) 12/27/16 05:05 Chloride 105.6 mmol/L (98-107) 12/27/16 05:05 Carbon Dioxide 21 mmol/L (22-30) L 12/27/16 05:05 Anion Gap 20 mmol/L 12/27/16 05:05 BUN 9 mg/dL (7-17) 12/27/16 05:05 Creatinine 0.6 mg/dL (0.7-1.2) L 12/27/16 05:05 Estimated GFR > 60 ml/min 12/27/16 05:05 BUN/Creatinine Ratio 15.00 % 12/27/16 05:05 Glucose 123 mg/dL (65-100) H 12/27/16 05:05 Calcium 8.1 mg/dL (8.4-10.2) L 12/27/16 05:05
[2016-12-29] MEDS: XALATAN 0.005% OU SCH (21:24)
[2016-12-30] MEDS: ULTRAM PO PRN ×2 (05:31→12:07)
[2016-12-30] MEDS: NACL 0.9% 1000 ML 1,000 ML IV SCH (05:33)
[2016-12-30 05:41] LABS: Basophils % (Auto) 0.7 % (0.0-1.8); Eosinophils % (Auto) 4.9 % (0.0-4.3); Hemoglobin 12.8 gm/dl (10.1-14.3); Mean Corpuscular HGB Conc 34 % (30-34); Mean Corpuscular Hemoglobin 31 pg (28-32); Mean Corpuscular Volume 93 fl (79-97); Platelet Count 186 K/mm3 (140-440); Red Blood Count 4.09 M/mm3 (3.65-5.03); Red Cell Distribution Width 15.2 % (13.2-15.2); White Blood Count 9.7 K/mm3 (4.5-11.0)
[2016-12-30] MEDS: APRESOLINE IV PRN (05:49)
[2016-12-30 05:50] VITALS: BP 174/96
[2016-12-30 05:50] LABS: Anion Gap 17 mmol/L; Blood Urea Nitrogen 10 mg/dL (7-17); Calcium 7.7 mg/dL (8.4-10.2); Carbon Dioxide 24 mmol/L (22-30); Chloride 105.2 mmol/L (98-107); Glucose 104 mg/dL (65-100); Potassium 3.9 mmol/L (3.6-5.0); Sodium 142 mmol/L (137-145)
--- NOTE | 2016-12-30 10:12 | Progress Note ---
Assessment and Plan 76 year old in 2 post6 op day Bipolar cemented arthroplasty Alert orientated in NAD Wound Ok ambulated well Plan dc to rehab Subjective Date of service: 12/30/16 Objective Vital signs: Vital Signs - 12hr 12/30/16 12/30/16 12/30/16 01:27 05:31 05:49 Temperature 99.3 F Pulse Rate 92 H Pulse Rate [ Left Brachial] Pulse Rate [ 96 H Right Brachial] Respiratory 18 18 Rate Blood Pressure 174/96 Blood Pressure 148/95 [Right Arm] O2 Sat by Pulse 95 Oximetry 12/30/16 12/30/16 07:20 08:47 Temperature Pulse Rate Pulse Rate [ 91 H Left Brachial] Pulse Rate [ 91 H Right Brachial] Respiratory 20 Rate Blood Pressure Blood Pressure [Right Arm] O2 Sat by Pulse 95 96 Oximetry - Labs CBC & BMP: 12/30/16 05:11 12/30/16 05:11 Labs: Abnormal lab results 12/30/16 12/30/16 Range/Units 05:11 05:11 Eos % (Auto) 4.9 H (0.0-4.3) % Eos # 0.5 H (0.0-0.4) K/mm3 Seg Neutrophils % 73.0 H (40.0-70.0) % Creatinine 0.5 L (0.7-1.2) mg/dL Glucose 104 H (65-100) mg/dL Calcium 7.7 L (8.4-10.2) mg/dL
[2016-12-30] MEDS: FOLVITE PO SCH (10:39)
[2016-12-30] MEDS: PROTONIX PO SCH (10:39)
[2016-12-30] MEDS: DELTASONE PO SCH (10:39)
[2016-12-30] MEDS: VITAMIN D3 PO SCH (10:39)
[2016-12-30] MEDS: LOVENOX SUB-Q SCH (10:40)
[2016-12-30] MEDS: TIMOPTIC OD SCH (10:41)
--- NOTE | 2016-12-30 14:00 | Discharge Summary ---
Providers - Providers Date of Admission: 12/26/16 20:05 Date of discharge: 12/30/16 Attending physician: GARY DIAL 12/27/16 11:31 Physical Therapy Evaluation and Treat [CONS] Routine Comment: post op bipolar hip replacement Reason For Exam: evaluate and treat Weight bearing status?: Full wt bearing Assistive devices?: Yes If so list: Walker 12/29/16 14:56 Consult to Case Management [CONS] Routine Services Needed at Discharge: Other Notified:: cm notified Comment:: Skilled PT Primary care physician: MANAGER DEMAND Hospitalization Reason for admission: hip pain Condition: Stable Pertinent studies: Hip X-ray Procedures: Arthroplasty R Hip Hospital course: Patient is a 76 yo woman with a history of RA on MTX and steroids, osteoporosis and glaucoma who presented with acute severe nonradiating right hip pain after a mechanical fall down her steps at home. She was found to have right femoral neck fracture. Ortho was consulted and underwent right hip hemiarthroplasty. Post op evaluated by PT and considered a good candidate for acute rehabilitation where she will be transferred in stable condition. Discharge diagnosis: 1. Right hip fracture - status post cemented arthroplasty 2. Elevated BP - likely secondary to pain 3. Leukocytosis - likely secondary to chronic corticosteroid use 4. Hypokalemia - resolved 5. Rheumatoid arthritis - on MTX and prednisone Disposition: DC/TX INPT REHAB FACILITY Time spent for discharge: 35 min Core Measure Documentation - Palliative Care Palliative Care/ Comfort Measures: Not Applicable - Core Measures Any of the following diagnoses?: none Exam - Physical Exam Narrative exam: Patient seen and examined: - Constitutional Vitals: Temp Pulse Resp BP Pulse Ox 99.3 F 91 H 20 174/96 96 12/30/16 01:27 12/30/16 08:47 12/30/16 08:47 12/30/16 05:49 12/30/16 08:47 General appearance: Present: no acute distress - EENT Eyes: Present: PERRL, EOM intact. Absent: scleral icterus, conjunctival injection - Neck Neck: Present: supple, normal ROM. Absent: masses or JVD - Respiratory Respiratory effort: normal Respiratory: bilateral: CTA, negative: rales, rhonchi, wheezing - Cardiovascular Rhythm: regular Heart Sounds: Present: S1 & S2. Absent: systolic murmur - Extremities Extremities: no ischemia, No edema - Abdominal General gastrointestinal: Present: soft, non-tender, non-distended, normal bowel sounds - Integumentary Integumentary: Present: warm, dry. Absent: jaundice, rash - Musculoskeletal Musculoskeletal: generalized weakness - Psychiatric Psychiatric: cooperative - Neurologic Neurologic: CNII-XII intact, no focal deficits Plan Activity: advance as tolerated, fall precautions Diet: low cholesterol, low salt Follow up with: PRIMARY CARE, [Primary Care Provider] - 3-5 Days
[2017-01-02] MEDS ORDERED: METHOTREXATE(DOSE WEEKLY ONLY) PO SCH (10:00)
== END 2016-12-30 17:25 | DRG 470 ==
LOC: ED 16:57 → 2B-SURG 20:05
PROVIDERS: ADMIT Internal Medicine; ATTEND Internal Medicine
PROC: 0SRR0J9 Replacement of Right Hip Joint, Femoral Surface with Synthetic Substitute, Cemented, Open Approach (ICD-10-PCS; principal; 2016-12-27)
DX: S72.011A Unspecified intracapsular fracture of right femur, initial encounter for closed fracture (principal); E87.6 Hypokalemia; M06.9 Rheumatoid arthritis, unspecified; M81.0 Age-related osteoporosis without current pathological fracture; H40.9 Unspecified glaucoma; Y92.89 Other specified places as the place of occurrence of the external cause; Z88.2 Allergy status to sulfonamides; Z88.8 Allergy status to other drugs, medicaments and biological substances; Y99.8 Other external cause status; W10.8XXA Fall (on) (from) other stairs and steps, initial encounter; Y92.009 Unspecified place in unspecified non-institutional (private) residence as the place of occurrence of the external cause
CPT/HCPCS: 36415; 80048; 85014; 85018; 85025; 85027; 85610; 85730; 88304; 88311; 93005; 93010; 96374; 96375; C1776; C9113; G8978-GP; G8979-GP; J0360; J0690; J1100; J1170; J1644; J1650; J1720; J1885; J2250; J2270; J2370; J2405; J2704; J3010; J7030; J7512

== ENCOUNTER 2016-12-30 19:40 | Inpatient (IN) | payer MEDICARE ==
[2016-12-30] MEDS ORDERED: ULTRAM PO PRN (20:00)
[2016-12-31 05:00] LABS: Basophils % (Auto) 0.7 % (0.0-1.8); Eosinophils % (Auto) 5.8 % (0.0-4.3); Hematocrit 36.7 % (30.3-42.9); Hemoglobin 12.3 gm/dl (10.1-14.3); Mean Corpuscular HGB Conc 34 % (30-34); Mean Corpuscular Hemoglobin 31 pg (28-32); Mean Corpuscular Volume 93 fl (79-97); Platelet Count 178 K/mm3 (140-440); Red Blood Count 3.93 M/mm3 (3.65-5.03); Red Cell Distribution Width 15.3 % (13.2-15.2); White Blood Count 7.9 K/mm3 (4.5-11.0)
[2016-12-31 05:22] LABS: Alanine Aminotransferase 14 units/L (7-56); Albumin 2.5 g/dL (3.9-5); Albumin/Globulin Ratio 0.9 %; Alkaline Phosphatase 55 units/L (35-129); Anion Gap 15 mmol/L; Bilirubin,Total 0.9 mg/dL (0.1-1.2); Blood Urea Nitrogen 11 mg/dL (7-17); Calcium 7.5 mg/dL (8.4-10.2); Carbon Dioxide 24 mmol/L (22-30); Chloride 103.2 mmol/L (98-107); Glucose 95 mg/dL (65-100); Potassium 3.2 mmol/L (3.6-5.0); Sodium 139 mmol/L (137-145); Total Protein 5.2 g/dL (6.3-8.2)
[2016-12-31] MEDS: ULTRAM PO PRN ×3 (06:19→20:34)
[2016-12-31] MEDS ORDERED: NON-FORMULARY (Folic Acid [Folic Acid] 1 MG) PO SCH (08:00)
[2016-12-31] MEDS: DELTASONE PO SCH ×2 (08:52→10:00)
[2016-12-31] MEDS: LOVENOX SUB-Q SCH (08:52)
[2016-12-31] MEDS: TIMOPTIC OD SCH ×2 (08:53→10:00)
[2016-12-31] MEDS: PROTONIX PO SCH ×2 (08:53→10:00)
[2016-12-31] MEDS: FOLVITE PO SCH ×2 (08:54→10:00)
[2016-12-31] MEDS: VITAMIN D3 PO SCH (08:54)
[2016-12-31] MEDS ORDERED: NON-FORMULARY (Cholecalciferol (Vitamin D3) [Vitamin D3] 1,000 UNIT) PO SCH (10:00)
--- NOTE | 2016-12-31 12:43 | History and Physical Report ---
History of Present Illness Date: 12/31/16 Referring Facility: [facility] Date of admission: 12/30/16 19:40 Chief Complaint: Rt femoral neck fracture History of present illness: POST ADMISSION PHYSICIAN EVALUATION ONSET DATE: 12/26/2016 IMPAIRMENT GROUP CODE: 08.11 ETIOLOGIC DIAGNOSIS: Rt femoral neck fracture STATUS CHANGES SINCE PREADMISSION SCREENING: PAS has been reviewed. In comparison, pt increased gait distance on today; pain rated 8/10. Pt able to participate well with therapies, however, remains with functional deficits. Pt continues to be an appropriate candidate for IRU admission. PREVIOUS FUNCTIONAL STATUS: Independent with ADLs, gait, and transfers; lived alone CURRENT FUNCTIONAL STATUS: Noy/CGA for transfers and gait HPI 76 y.o. female with history of rheumatoid arthritis on chronic steroids and osteoporosis, who reports losing her balance attempting to fix her screen door and fell down onto the stairs outside. Pt felt right sided pain; found to have a displaced intracapsular right femoral neck fracture, s/p cemented bipolar yaz -arthroplasty on 12/27/2016. Post-op course notable for fluctuating blood pressure, SBP ranging 100-172; H/H drop from 14.6/44.0 to lowest 12.3/37.3; gait dysfunction with PT. Pt is now admitted to IRU for aggressive therapies and ongoing medical management. Past History Past Medical History: arthritis (rheumatoid), other (diverticulosis, osteoporosis, glaucoma) Past Surgical History: cataract removal (bilateral), hysterectomy, tonsillectomy , Other (bladder surgery, left rotator cuff surgery, thorocolumbar surgery, lumbosacral surgery) Social history: Lives alone. denies: smoking, alcohol abuse Family history: no significant family history Medications and Allergies Allergies Allergy/AdvReac Type Severity Reaction Status Date / Time celecoxib [From Celebrex] Allergy Rash Verified 04/18/16 10:37 Sulfa (Sulfonamide Allergy Rash Verified 04/18/16 10:37 Antibiotics) hydrocodone AdvReac Shortness Verified 04/18/16 10:37 of Breath oxycodone AdvReac Shortness Verified 04/18/16 10:37 of Breath Home Medications Medication Instructions Recorded Confirmed Last Taken Type Biotin 1,000 mcg PO DAILY 04/18/16 12/31/16 10/26/16 History 1000mg Cholecalciferol (Vitamin D3) 1,000 unit PO DAILY 04/18/16 12/31/1612/26/17 History [Vitamin D3] Folic Acid 1 mg PO QDAY 04/18/16 12/31/16 12/26/16 History Methotrexate Sodium [Methotrexate] 2.5 mg PO QMONTH 04/18/16 12/31/16 12/26/16 History Prednisone 5 mg PO DAILY 04/18/16 12/31/16 12/26/16 History Timolol 0.5% [Timoptic] 1 drop OD DAILY 04/18/16 12/31/16 12/26/16 History Enoxaparin [Lovenox] 40 mg SUB-Q QDAY syringe 12/30/16 12/31/16 Unknown Rx Latanoprost 0.005% [Xalatan 0.005%] 1 drops OU QHS bottle 12/30/16 12/31/16 Unknown Rx Pantoprazole [Protonix TAB] 40 mg PO DAILY tablet 12/30/16 12/31/16 Unknown Rx Active Meds: Active Medications Acetaminophen (Tylenol) 650 mg PO Q4H PRN PRN Reason: Pain MILD(1-3)/Fever >100.5/BECK Cholecalciferol (Vitamin D3) 1,000 unit PO QDAY [facility] Last Admin: 12/31/16 08:54 Dose: 1,000 unit Enoxaparin Sodium (Lovenox) 40 mg SUB-Q QDAY [facility] Last Admin: 12/31/16 08:52 Dose: 40 mg Folic Acid (Folvite) 1 mg PO DAILY [facility] Last Admin: 12/31/16 08:54 Dose: 1 mg Pantoprazole Sodium (Protonix) 40 mg PO DAILY [facility] Last Admin: 12/31/16 08:53 Dose: 40 mg Potassium Chloride (K-Dur) 20 meq PO BID [facility] Stop: 01/02/17 11:59 Prednisone (Deltasone) 5 mg PO DAILY [facility] Last Admin: 12/31/16 08:52 Dose: 5 mg Timolol Maleate (Timoptic) 1 drops OD DAILY [facility] Last Admin: 12/31/16 08:53 Dose: 1 drops Tramadol HCl (Ultram) 100 mg PO Q6H PRN PRN Reason: Pain, Moderate (4-6) Last Admin: 12/31/16 12:15 Dose: 100 mg Review of Systems All systems: negative Ears, nose, mouth and throat: no headache Cardiovascular: no chest pain Respiratory: no cough Gastrointestinal: no abdominal pain, no nausea, no vomiting, no diarrhea, no constipation Genitourinary Female: no dysuria Musculoskeletal: shooting leg pain (right hip and lateral calf; rated 8/10), gait dysfunction Exam - Constitutional Vitals: Vital Signs - 12hr 12/31/16 12/31/16 07:45 08:00 Temperature 98.5 F Pulse Rate [ 91 H 91 H Left Brachial] Respiratory 18 18 Rate Blood Pressure 175/94 180/92 [Left Arm] O2 Sat by Pulse 95 95 Oximetry General appearance: no acute distress - EENT Eyes: EOM intact ENT: hearing intact - Neck Neck: supple, normal ROM - Respiratory Respiratory effort: normal Respiratory: bilateral: CTA - Cardiovascular Rhythm: regular Heart Sounds: Present: S1 & S2 - Extremities Extremities: No edema Extremity abnormal: other (right hip incision healing well; nesha in place, no drainage, redness or odor noted) - Gastrointestinal General gastrointestinal: Present: soft, non-tender, non-distended, normal bowel sounds - Neurologic Neurologic: CNII-XII intact, moves all extremities (3/5 right LE; otherwise WNL) , other (sensation grossly intact throughout) - Psychiatric Psychiatric: appropriate mood/affect, intact judgment & insight, memory intact, cooperative - Labs CBC & Chem 7: 12/31/16 04:18 12/31/16 04:18 Labs: Laboratory Results - last 72 hr 12/31/16 12/31/16 04:18 04:18 WBC 7.9 RBC 3.93 Hgb 12.3 Hct 36.7 MCV 93 MCH 31 MCHC 34 RDW 15.3 H Plt Count 178 Lymph % (Auto) 13.1 L Braxton % (Auto) 11.6 H Eos % (Auto) 5.8 H Baso % (Auto) 0.7 Lymph # 1.0 L Braxton # 0.9 H Eos # 0.5 H Baso # 0.1 Seg Neutrophils % 68.8 Seg Neutrophils # 5.4 Sodium 139 Potassium 3.2 L Chloride 103.2 Carbon Dioxide 24 Anion Gap 15 BUN 11 Creatinine 0.5 L Estimated GFR > 60 BUN/Creatinine Ratio 22.00 Glucose 95 Calcium 7.5 L Total Bilirubin 0.9 AST 19 ALT 14 Alkaline Phosphatase 55 Total Protein 5.2 L Albumin 2.5 L Albumin/Globulin Ratio 0.9 Assessment and Plan Assessment and plan: 76 y.o. female with history of rheumatoid arthritis on chronic steroids and osteoporosis, s/p fall with subsequent displaced intracapsular right femoral neck fracture requiring cemented bipolar yaz-arthroplasty. The patient is medically stable, however, requires ongoing medical management for elevated BP, RA, pain control, gait dysfunction. Pt is appropriate for inpatient rehabilitation admission and is thought to be able to tolerate at least 3 hours of therapy a day, 5 days a week including 1.5 hours of physical therapy and 1.5 hours of occupational therapy. Patient is able to understand and follow basic directions and has attainable rehab goals. Potential barriers/complications include falls, infection, dislocation, DVT, PE, uncontrolled pain. Plan 1. Rehabilitation- Pt will undergo multidisciplinary/integrative rehab PT/OT, Nursing. Areas to be addressed include, but are not limited to PT for mobility , strengthening, transfer training, ROM, endurance, stairs, balance; OT for ADLs , household tasks, adaptive equipment; Nursing for carryover of therapies, pain control, education on hip precautions, skin integrity, medication management, bowel/bladder management; Nutrition as needed; information services consultant for discharge planning and equipment needs. Potential interventions include appropriate assistive device or adaptive equipment. Expected overall level of functional improvement by discharge is Carlito for ADLs, gait, and transfers. Pt will tentatively be discharged home with outpatient PT. Estimated length of stay is 7-10 days. 2. s/p displaced intracapsular right femoral neck fracture requiring cemented bipolar yaz-arthroplasty- hip precautions; pain control with tramadol; aggressive therapies 3. elevated BP- likely pain related as pt reports no prior history; follow closely 4. Rheumatoid Arthritis- continue daily steroids; methotrexate once weekly on Fridays 5. hypokalemia- noted on AM labs; KDur, recheck in 1-2 days 6. glaucoma- continue eye drops 7. osteoporosis- continue Vit D 8. DVT px- lovenox - Patient Problems (1) Fracture of femoral neck, right Current Visit: Yes Status: Acute Qualifiers: Encounter type: initial encounter Fracture type: closed Open fracture type: O Fracture healing: F Qualified Code(s): S72.001A - Fracture of unspecified part of neck of right femur, initial encounter for closed fracture (2) Unsteady gait Current Visit: Yes Status: Acute (3) Rheumatoid arthritis Current Visit: Yes Status: Acute Qualifiers: Rheumatoid arthritis location: multiple sites Rheumatoid factor presence: unspecified presence Laterality: L Qualified Code(s): M06.9 - Rheumatoid arthritis, unspecified (4) Glaucoma Current Visit: Yes Status: Acute Qualifiers: Glaucoma type: unspecified type Primary angle closure glaucoma type: P Laterality: L Glaucoma stage: G (5) Osteoporosis Current Visit: Yes Status: Acute (6) Hypokalemia Current Visit: Yes Status: Acute
[2016-12-31] MEDS: K-DUR PO SCH ×2 (13:21→21:59)
[2017-01-01] MEDS: ULTRAM PO PRN ×3 (05:59→21:16)
[2017-01-01] MEDS: TYLENOL PO PRN (10:13)
[2017-01-01] MEDS: TIMOPTIC OD SCH (10:15)
[2017-01-01] MEDS: PROTONIX PO SCH (10:15)
[2017-01-01] MEDS: FOLVITE PO SCH (10:16)
[2017-01-01] MEDS: LOVENOX SUB-Q SCH (10:16)
[2017-01-01] MEDS: DELTASONE PO SCH (10:16)
[2017-01-01] MEDS: VITAMIN D3 PO SCH (10:17)
[2017-01-01] MEDS: K-DUR PO SCH ×2 (10:17→21:16)
--- NOTE | 2017-01-01 13:09 | IRU Plan of Care ---
Interdisciplinary Plan of Care - [facility] IRU INTERDISCIPLINARY PLAN: [facility] Inpatient Rehab Unit Plan of Care IRU Interdisciplinary Care Plan Start: 12/30/16 20: 07 Freq: Admission then PRN Status: Active Document 01/01/17 10:25 DB (Rec: 01/01/17 10:29 DB [id number]) Interdisciplinary Problem List Interdisciplinary Problem List Interdisciplinary Problem List Impaired Bathing/Grooming Query Text:Answers will Trigger Problems Impaired Dressing and Outcomes on Worklist. Impaired Mobility Impaired Transfers Impaired Toileting Pain Management Impaired Skin/Tissue Integrity Impaired Home Management Impaired Safety Medications Education IRU Interdisciplinary Care Plan Therapy Services Therapy Services Will Include: Physical Therapy Query Text:Patient will be seen for a Occupational Therapy minimum of 3 hours of daily therapy 5 out of 7 days a week. Therapy intensity may be adjusted within a 7 consecutive day period to effectively serve the individual needs of the patient. Treatment Frequency/Intensity/Duration Treatment Frequency 5 days per week Treatment Intensity 1.5 hours per discipline (PT/OT ) daily Treatment Duration 10-14 days Problem Area: Eating/Swallowing Eating/Swallowing Outcomes Eating/Swallowing Interventions Problem Area: Bathing/Grooming Bathing/Grooming Outcomes Improve [place] w/ Grooming Improve [place] w/ Bathing Bathing/Grooming Interventions ADL Training Use of Assistive Devices Therapeutic Exercise Therapeutic Activity Balance Work Activity Tolerance Work Patient/Caregiver Education Problem Area: Dressing Dressing Outcomes Improve [place] w/ UB Dressing Improve [place] w/ LB Dressing Dressing Interventions ADL Training Use of Assistive Devices Therapeutic Exercise Balance Work Patient/Caregiver Education Problem Area: Mobility Mobility Outcomes Improve [place] w/ Bed Mobility Improve [place] w/ Ambulation Improve [place] w/ Stairs /Curb Mobility Interventions Therapeutic Exercise Activity Tolerance Work Use of Assistive Devices Patient/Caregiver Education Bed Mobility Work Gait Training Problem Area: Transfers Transfers Outcomes Improve [place] w/ Bed Transfers Improve [place] w/ Car Transfers Transfers Interventions Transfer Training Therapeutic Exercise Activity Tolerance Work Use of Assistive Devices Patient/Caregiver Education Problem Area: Bowel/Bladder Managment Bowel/Bladder Outcomes Bowel/Bladder Interventions Problem Area: Toileting Toileting Outcomes Improve [place] w/ Toileting Toileting Interventions ADL Training Balance Work Use of Assistive Devices Patient/Caregiver Education Problem Area: Nutrition Nutrition Outcomes Understand and Comply w/ Diet Improve/Maintain Oral Intake Nutrition Interventions Monitor Nutrient Intake Patient/Caregiver Education Problem Area: Comprehension Comprehension Outcomes Comprehension Interventions Problem Area: Expression Expression Outcomes Expression Interventions Problem Area: Problem Solving Problem Solving Outcomes Problem Solving Interventions Problem Area: Memory Memory Outcomes Memory Interventions Problem Area: Pain Management Pain Management Outcomes Demonstrate/Verbalize Pain Strategies Pain Management Interventions Medication Management Positioning/Turning Problem Area: Knowledge Deficits Knowledge Deficits Outcomes Verbalize Precautions Knowledge Deficits Interventions Body Mechanics/Joint Protection Education Safety Education Problem Area: Skin/Tissue Integrity Skin/Tissue Integrity Outcomes Exhibit Healing of Wound/ Incision Skin/Tissue Integrity Interventions Skin/Wound Care Pressure Relief Instruction Positioning/Turning Problem Area: Social Interaction Social Interaction Outcomes Social Interaction Interventions Problem Area: Adjustment to Disability Adjustment to Disability Outcomes Adjustment to Disability Interventions Problem Area: Discharge Concerns Discharge Concerns Outcomes Discharge Home w/ Necessary Equipment Have Home Health/Outpatient Services Discharge Concerns Interventions Discharge Planning Family/Caregiver Conference Family/Caregiver Training Problem Area: Community Reintegration Community Reintegration Outcomes Demonstrate Understanding of Community Resources Community Reintegration Interventions Provide Community Resources Problem Area: Home Management Home Management Outcomes Improve [place] w/ Home Management Home Management Interventions Meal Preparation Clothing Care Activity Tolerance Work Patient/Caregiver Education Problem Area: Safety Safety Outcomes Provide Safe Environment Perform Selfcare Safely Demonstrate Good Safety w/ Transfers/Mobility Safety Interventions Identify Fall Risk [place] Pt. to Environment Reduce Environmental Hazards Problem Area: Medication Education Medication Education Outcomes Patient/Caregiver will Verbalize Understanding of Medications Medication Education Interventions Explain Administration/Side Effects/Interactions Problem Area: Diabetes Education Diabetes Education Outcomes Diabetes Education Interventions Problem Area: Oxygenation Oxygenation Outcomes Oxygenation Interventions Problem Area: Cardiovascular Cardiovascular Outcomes Cardiovascular Interventions Physician Only Medical Prognosis and Rehabilitation Patient demonstrates good Potential (Completed by Physician) rehab potential. Medical Prognosis: Good This plan of care has been developed based on the findings from the pre- admission assessment, post admission physician evaluation, information gathered from the assessments from all therapy disciplines and other pertinent clinicians. The plan of care has been reviewed and discussed in collaboration with the interdisciplinary team. The plan of care will be reviewed and updated at least weekly. 76 y.o. female with history of rheumatoid arthritis on chronic steroids and osteoporosis, s/p fall with subsequent displaced intracapsular right femoral neck fracture requiring cemented bipolar yaz-arthroplasty. The patient remains at risk for falls, infection, dislocation, DVT, PE, uncontrolled pain. BP remains mildly elevated; will continue to follow as pt has not required medications to control BP in approximately 5 years. Will recheck potassium levels on tomorrow. Maintain on home meds for RA. Pt is tolerating therapies well, however, continues with functional deficits in self cares and gait. Pt remains an appropriate candidate for IRU admission.
--- NOTE | 2017-01-01 13:17 | Progress Note ---
Assessment and Plan 76 y.o. female with history of rheumatoid arthritis on chronic steroids and osteoporosis, s/p fall with subsequent displaced intracapsular right femoral neck fracture requiring cemented bipolar yaz-arthroplasty - s/p displaced intracapsular right femoral neck fracture requiring cemented bipolar yaz-arthroplasty- POD #5; hip precautions; pain control with prn tylenol and tramadol - unsteady gait- improving gait distance; continue to address in PT - elevated BP- improved from yesterday AM, however, remains elevated; continue to follow as pain control improves - Rheumatoid Arthritis- continue daily steroids; methotrexate once weekly on Fridays - hypokalemia- recheck in AM - osteoporosis- continue Vit D - DVT px- lovenox - team conference held on today- pt is Carlito for eating; s/u for grooming, UB dressing; supervision for bed/chair transfers; SBA for bed mobility; Noy for bathing, toileting, toilet/shower transfers; modA for LB dressing; CGA for stairs and gait 170 feet with RW. Barriers- pain, elevated BP; anticipated d/c home on 01/07/2017. Pt previously lived alone, however, daughter is available to assist after discharge. - Patient Problems (1) Fracture of femoral neck, right Current Visit: Yes Status: Acute Qualifiers: Encounter type: initial encounter Fracture type: closed Open fracture type: O Fracture healing: F Qualified Code(s): S72.001A - Fracture of unspecified part of neck of right femur, initial encounter for closed fracture (2) Unsteady gait Current Visit: Yes Status: Acute (3) Rheumatoid arthritis Current Visit: Yes Status: Acute Qualifiers: Rheumatoid arthritis location: multiple sites Rheumatoid factor presence: unspecified presence Laterality: L Qualified Code(s): M06.9 - Rheumatoid arthritis, unspecified (4) Osteoporosis Current Visit: Yes Status: Acute (5) Hypokalemia Current Visit: Yes Status: Acute Subjective Date of service: 01/01/17 Principal diagnosis: displaced intracapsular right femoral neck fracture Interval history: Pt seen in room this AM, F/U IPR course following displaced intracapsular right femoral neck fracture. Pt reports pain in right knee on today; has history of RA that affects multiple joints bilaterally. Also reports having hard stool Objective - Constitutional Vitals: Vital Signs - 12hr 01/01/17 01/01/17 01/01/17 05:59 06:59 07:47 Temperature 98.5 F Pulse Rate [ 86 Left Brachial] Respiratory 18 18 20 Rate Blood Pressure 154/90 [Left Arm] O2 Sat by Pulse 97 Oximetry General appearance: Present: no acute distress - EENT Eyes: EOM intact ENT: hearing intact - Neck Neck: supple, normal ROM - Respiratory Respiratory effort: normal Extremities: No edema - Neurologic Neurologic: CNII-XII intact, moves all extremities (RLE limited due to recent surgery) - Psychiatric Psychiatric: appropriate mood/affect, intact judgment & insight, memory intact, cooperative - Labs CBC & Chem 7: 12/31/16 04:18 12/31/16 04:18
[2017-01-01] MEDS: COLACE PO SCH ×2 (13:37→21:16)
[2017-01-02] MEDS: ULTRAM PO PRN ×2 (06:37→20:23)
[2017-01-02 07:45] LABS: Hematocrit 37.2 % (30.3-42.9); Hemoglobin 12.4 gm/dl (10.1-14.3); Mean Corpuscular HGB Conc 33 % (30-34); Mean Corpuscular Hemoglobin 31 pg (28-32); Mean Corpuscular Volume 93 fl (79-97); Platelet Count 254 K/mm3 (140-440); Red Cell Distribution Width 15.6 % (13.2-15.2)
[2017-01-02] MEDS: LOVENOX SUB-Q SCH (07:55)
[2017-01-02 08:04] LABS: Anion Gap 14 mmol/L; Blood Urea Nitrogen 13 mg/dL (7-17); Carbon Dioxide 25 mmol/L (22-30); Chloride 103.7 mmol/L (98-107); Glucose 94 mg/dL (65-100); Potassium 4.1 mmol/L (3.6-5.0); Sodium 139 mmol/L (137-145)
[2017-01-02] MEDS: VITAMIN D3 PO SCH (08:37)
[2017-01-02] MEDS: K-DUR PO SCH (08:37)
[2017-01-02] MEDS: COLACE PO SCH (08:37)
[2017-01-02] MEDS: DELTASONE PO SCH (09:43)
[2017-01-02] MEDS: FOLVITE PO SCH (09:43)
[2017-01-02] MEDS: PROTONIX PO SCH (09:44)
[2017-01-02] MEDS: TIMOPTIC OD SCH (09:45)
[2017-01-02] MEDS ORDERED: METHOTREXATE(DOSE WEEKLY ONLY) PO SCH (10:00)
[2017-01-02] MEDS: TYLENOL PO PRN (10:49)
--- NOTE | 2017-01-02 12:09 | Progress Note ---
Assessment and Plan 76 y.o. female with history of rheumatoid arthritis on chronic steroids and osteoporosis, s/p fall with subsequent displaced intracapsular right femoral neck fracture requiring cemented bipolar yaz-arthroplasty - s/p displaced intracapsular right femoral neck fracture requiring cemented bipolar yaz-arthroplasty- POD #6; hip precautions; pain control with prn tylenol and tramadol - unsteady gait- CGA-SBA for gait; continue to address balance, strengthening - elevated BP- stable - Rheumatoid Arthritis- continue daily steroids; methotrexate once weekly on Fridays - hypokalemia- resolved; labs reviewed - osteoporosis- continue Vit D - DVT px- lovenox - family training planned for Thursday - RLE doppler negative for DVT (completed on today) - Patient Problems (1) Fracture of femoral neck, right Current Visit: Yes Status: Acute Qualifiers: Encounter type: initial encounter Fracture type: closed Open fracture type: O Fracture healing: F Qualified Code(s): S72.001A - Fracture of unspecified part of neck of right femur, initial encounter for closed fracture (2) Unsteady gait Current Visit: Yes Status: Acute (3) Rheumatoid arthritis Current Visit: Yes Status: Acute Qualifiers: Rheumatoid arthritis location: multiple sites Rheumatoid factor presence: unspecified presence Laterality: L Qualified Code(s): M06.9 - Rheumatoid arthritis, unspecified (4) Osteoporosis Current Visit: Yes Status: Acute Subjective Date of service: 01/02/17 Principal diagnosis: displaced intracapsular right femoral neck fracture Interval history: Pt seen in PT gym this AM, F/U IPR course following displaced intracapsular right femoral neck fracture. Pt reports right lateral and posterior calf pain, also increased swelling at RLE/ankle Objective - Constitutional Vitals: Vital Signs - 12hr 01/02/17 07:35 Temperature 98.7 F Pulse Rate [ 92 H Left Brachial] Respiratory 20 Rate Blood Pressure 154/82 [Left Arm] O2 Sat by Pulse 98 Oximetry General appearance: Present: mild distress (secondary to pain), other (lying on mat) - EENT Eyes: EOM intact ENT: hearing intact - Neck Neck: supple, normal ROM - Respiratory Respiratory effort: normal Extremity abnormal: edema (RLE), tenderness (rt calf) - Neurologic Neurologic: CNII-XII intact, moves all extremities - Psychiatric Psychiatric: appropriate mood/affect, intact judgment & insight, memory intact, cooperative - Allied health notes Allied health notes reviewed: PT (SBA for bed mobility; Supervision for transfers; CGA-CBA for gait and stairs), OT (SBA for toileting, LB dressing and transfers) - Labs CBC & Chem 7: 01/02/17 07:15 01/02/17 07:15 Labs: Abnormal lab results 01/02/17 01/02/17 Range/Units 07:15 07:15 RDW 15.6 H (13.2-15.2) % Creatinine 0.5 L (0.7-1.2) mg/dL Calcium 8.0 L (8.4-10.2) mg/dL
[2017-01-03] MEDS: COLACE PO SCH ×3 (00:12→22:07)
[2017-01-03] MEDS: TYLENOL PO PRN ×2 (02:24→11:31)
[2017-01-03] MEDS: ULTRAM PO PRN ×2 (07:37→22:07)
[2017-01-03] MEDS: LOVENOX SUB-Q SCH (08:59)
[2017-01-03] MEDS: VITAMIN D3 PO SCH (08:59)
[2017-01-03] MEDS: FOLVITE PO SCH (09:00)
[2017-01-03] MEDS: PROTONIX PO SCH (09:00)
[2017-01-03] MEDS: DELTASONE PO SCH (09:01)
[2017-01-03] MEDS: TIMOPTIC OD SCH (09:04)
[2017-01-04] MEDS: ULTRAM PO PRN ×3 (07:35→21:26)
[2017-01-04] MEDS: TIMOPTIC OD SCH ×2 (08:18→10:00)
[2017-01-04] MEDS: LOVENOX SUB-Q SCH (08:19)
[2017-01-04] MEDS: PROTONIX PO SCH ×2 (08:19→10:00)
[2017-01-04] MEDS: FOLVITE PO SCH ×2 (08:20→10:00)
[2017-01-04] MEDS: VITAMIN D3 PO SCH (08:20)
[2017-01-04] MEDS: DELTASONE PO SCH ×2 (08:21→10:00)
[2017-01-04] MEDS: COLACE PO SCH ×2 (08:22→21:28)
[2017-01-04] MEDS: TYLENOL PO PRN (10:31)
[2017-01-05] MEDS: ULTRAM PO PRN ×3 (05:28→20:50)
[2017-01-05] MEDS: LOVENOX SUB-Q SCH (10:31)
[2017-01-05] MEDS: VITAMIN D3 PO SCH (10:33)
[2017-01-05] MEDS: FOLVITE PO SCH (10:34)
[2017-01-05] MEDS: DELTASONE PO SCH (10:34)
[2017-01-05] MEDS: PROTONIX PO SCH (10:34)
[2017-01-05] MEDS: TIMOPTIC OD SCH (10:34)
--- NOTE | 2017-01-05 11:24 | Progress Note ---
Assessment and Plan 76 y.o. female with history of rheumatoid arthritis on chronic steroids and osteoporosis, s/p fall with subsequent displaced intracapsular right femoral neck fracture requiring cemented bipolar yaz-arthroplasty - s/p displaced intracapsular right femoral neck fracture requiring cemented bipolar yaz-arthroplasty- POD #9; hip precautions; pain control with prn tylenol and tramadol - unsteady gait- SBA for gait; continue gait training - elevated BP- BP slightly improved this AM - Rheumatoid Arthritis- continue daily steroids; methotrexate once weekly on Fridays - osteoporosis- Vit D - DVT px- lovenox - family training completed on today; tentative d/c home on 01/07 - Patient Problems (1) Fracture of femoral neck, right Current Visit: Yes Status: Acute Qualifiers: Encounter type: initial encounter Fracture type: closed Open fracture type: O Fracture healing: F Qualified Code(s): S72.001A - Fracture of unspecified part of neck of right femur, initial encounter for closed fracture (2) Unsteady gait Current Visit: Yes Status: Acute (3) Rheumatoid arthritis Current Visit: Yes Status: Acute Qualifiers: Rheumatoid arthritis location: multiple sites Rheumatoid factor presence: unspecified presence Laterality: L Qualified Code(s): M06.9 - Rheumatoid arthritis, unspecified (4) Osteoporosis Current Visit: Yes Status: Acute Subjective Date of service: 01/05/17 Principal diagnosis: displaced intracapsular right femoral neck fracture Interval history: Pt seen in PT gym this AM, F/U IPR course following displaced intracapsular right femoral neck fracture. Pt continues with intermittent right lateral calf pain, likely secondary to trauma from fall; negative for Rt LE DVT Objective - Constitutional Vitals: Vital Signs - 12hr 01/05/17 01/05/17 05:28 06:28 Respiratory 18 18 Rate General appearance: Present: no acute distress, other (lying on mat) - EENT Eyes: EOM intact ENT: hearing intact - Neck Neck: supple, normal ROM - Respiratory Respiratory effort: normal Extremity abnormal: edema (noted at right ankle, greatest laterally), tenderness (lateral right calf) - Gastrointestinal General gastrointestinal: Present: soft, non-tender - Neurologic Neurologic: CNII-XII intact, moves all extremities - Psychiatric Psychiatric: appropriate mood/affect, intact judgment & insight, memory intact, cooperative - Allied health notes Allied health notes reviewed: PT (CGA-SBA for transfers; SBA for gait >300 feet with RW), OT (supervision for ADLs, except Noy for LB dressing and bathing) - Labs CBC & Chem 7: 01/02/17 07:15 01/02/17 07:15
[2017-01-05] MEDS: COLACE PO SCH ×2 (11:49→21:49)
[2017-01-06] MEDS: ULTRAM PO PRN ×3 (06:24→20:20)
[2017-01-06] MEDS: DELTASONE PO SCH ×2 (08:37→10:28)
[2017-01-06] MEDS: VITAMIN D3 PO SCH (08:38)
[2017-01-06] MEDS: TIMOPTIC OD SCH ×2 (08:38→10:28)
[2017-01-06] MEDS: PROTONIX PO SCH ×2 (08:39→10:28)
[2017-01-06] MEDS: FOLVITE PO SCH ×2 (08:39→10:28)
[2017-01-06] MEDS: LOVENOX SUB-Q SCH (08:40)
[2017-01-06] MEDS: COLACE PO SCH ×2 (08:42→22:22)
[2017-01-06] MEDS: TYLENOL PO PRN (10:00)
[2017-01-06] MEDS: COZAAR PO SCH (14:09)
--- NOTE | 2017-01-06 14:17 | Progress Note ---
Assessment and Plan 76 y.o. female with history of rheumatoid arthritis on chronic steroids and osteoporosis, s/p fall with subsequent displaced intracapsular right femoral neck fracture requiring cemented bipolar yaz-arthroplasty - s/p displaced intracapsular right femoral neck fracture requiring cemented bipolar yaz-arthroplasty- POD #10, d/c nesha tomorrow prior to discharge home ; hip precautions; pain control with prn tylenol and tramadol - unsteady gait- supervision for gait - HTN- started on losartan; educated on need to check BP at home after discharge to avoid hypotension; reports having a BP cuff - Rheumatoid Arthritis- continue daily steroids; methotrexate once weekly on Fridays - osteoporosis- Vit D - DVT px- lovenox - family training completed on yesterday; tentative d/c home on tomorrow - Patient Problems (1) Fracture of femoral neck, right Current Visit: Yes Status: Acute Qualifiers: Encounter type: initial encounter Fracture type: closed Open fracture type: O Fracture healing: F Qualified Code(s): S72.001A - Fracture of unspecified part of neck of right femur, initial encounter for closed fracture (2) Unsteady gait Current Visit: Yes Status: Acute (3) Rheumatoid arthritis Current Visit: Yes Status: Acute Qualifiers: Rheumatoid arthritis location: multiple sites Rheumatoid factor presence: unspecified presence Laterality: L Qualified Code(s): M06.9 - Rheumatoid arthritis, unspecified (4) Osteoporosis Current Visit: Yes Status: Acute (5) HTN (hypertension) Current Visit: Yes Status: Acute Qualifiers: Hypertension type: H Subjective Date of service: 01/06/17 Principal diagnosis: displaced intracapsular right femoral neck fracture Interval history: Pt seen in OT gym this AM, F/U IPR course following displaced intracapsular right femoral neck fracture. Pain 8/10 this AM when seen. Pt remains with elevated BP, has taken losartan in the past and agrees to initiating medication at this time Objective - Constitutional Vitals: Vital Signs - 12hr 01/06/17 01/06/17 07:26 14:09 Temperature 98.6 F Pulse Rate 82 Pulse Rate [ 82 Left Brachial] Respiratory 20 Rate Blood Pressure 155/69 Blood Pressure 161/80 [Left Arm] O2 Sat by Pulse 98 Oximetry General appearance: Present: mild distress (secondary to pain) - EENT Eyes: EOM intact ENT: hearing intact - Neck Neck: supple, normal ROM - Respiratory Respiratory effort: normal Extremity abnormal: edema (RLE) - Neurologic Neurologic: CNII-XII intact, moves all extremities - Psychiatric Psychiatric: appropriate mood/affect, cooperative - Allied health notes Allied health notes reviewed: PT (Arielle for transfers and curbs; supervision for gait and stairs), OT (Noy for LB dressing; Arielle for transfers) - Labs CBC & Chem 7: 01/02/17 07:15 01/02/17 07:15
[2017-01-07] MEDS: ULTRAM PO PRN (06:48)
[2017-01-07] MEDS: COLACE PO SCH (08:38)
[2017-01-07 08:48] VITALS: BP 134/69
[2017-01-07] MEDS ORDERED: COLACE PO PRN (09:00)
[2017-01-07] MEDS: TYLENOL PO PRN (09:11)
[2017-01-07] MEDS: DELTASONE PO SCH (09:53)
[2017-01-07] MEDS: VITAMIN D3 PO SCH (09:53)
[2017-01-07] MEDS: COZAAR PO SCH (09:53)
[2017-01-07] MEDS: PROTONIX PO SCH (09:53)
[2017-01-07] MEDS: FOLVITE PO SCH (09:53)
[2017-01-07] MEDS: LOVENOX SUB-Q SCH (09:54)
[2017-01-07] MEDS: TIMOPTIC OD SCH (09:55)
--- NOTE | 2017-01-07 13:24 | Discharge Summary ---
Providers - Providers Date of Admission: 12/30/16 19:40 Date of discharge: 01/07/17 Attending physician: SUNNY PHAN 12/30/16 19:56 Occupational Therapy Evaluate and Treat [CONS] Routine Comment: Reason For Exam: hip fracture Physical Therapy Evaluation and Treat [CONS] Routine Comment: Reason For Exam: hip fracture Primary care physician: Dr. Olga Yanez Hospitalization Reason for admission: Right Femoral Neck fracture Condition: Stable Hospital course: 76 y.o. female with history of osteoporosis and rheumatoid arthritis on chronic steroids, who reports losing her balance attempting to fix her screen door and fell down onto the stairs outside her home. Pt felt right sided pain; found to have a displaced intracapsular right femoral neck fracture, s/p cemented bipolar yaz-arthroplasty on 12/27/2016. Post-op course notable for fluctuating blood pressure, SBP ranging 100-172; H/H drop from 14.6/44.0 to lowest 12.3/37.3 ; gait dysfunction with PT. Once stable, pt was admitted to IRU for aggressive therapies and ongoing medical management. Course notable for need to start on anti-hypertensive; good response with losartan. H/H remained stable. Functionally, pt made good progress with therapies. On admission, pt required SBA/PALMA for grooming and UB dressing; Noy for bathing, toileting, toilet/shower transfers; modA for LB dressing; supervision-Noy for bed mobility and transfers ; CGA/Noy for gait 55 feet with RW. At the time of discharge, pt has progressed to [facility] for ADLs except S/U for LB dressing and supervision for shower transfers; supervision to Carlito for gait, supervision for stairs; Carlito for transfers. Family training was completed prior to discharge. Pt is stable for d/c home. >30mins spent on d/c process, medication reconciliation, pt education- BP cuff; wound evaluation Disposition: DISCHARGED TO HOME OR SELFCARE - Discharge Diagnoses (1) Fracture of femoral neck, right Status: Acute Qualifiers: Encounter type: initial encounter Fracture type: closed Open fracture type: O Fracture healing: F Qualified Code(s): S72.001A - Fracture of unspecified part of neck of right femur, initial encounter for closed fracture (2) Unsteady gait Status: Acute (3) Rheumatoid arthritis Status: Acute Qualifiers: Rheumatoid arthritis location: multiple sites Rheumatoid factor presence: unspecified presence Laterality: L Qualified Code(s): M06.9 - Rheumatoid arthritis, unspecified (4) Osteoporosis Status: Acute (5) HTN (hypertension) Status: Acute Qualifiers: Hypertension type: H Core Measure Documentation - Palliative Care Palliative Care/ Comfort Measures: Not Applicable - Core Measures Any of the following diagnoses?: none Exam - Constitutional Vitals: Temp Pulse Resp BP Pulse Ox 98.8 F 76 18 134/69 97 01/07/17 08:00 01/07/17 10:00 01/07/17 08:00 01/07/17 09:53 01/07/17 10:00 General appearance: Present: no acute distress - EENT Eyes: Present: EOM intact ENT: hearing intact - Neck Neck: Present: supple, normal ROM - Respiratory Respiratory effort: normal - Extremities Extremity abnormal: edema (minimal at RLE, ankle), other (nesha discontinued; minimal drainage noted after removal; steristrips in place) - Psychiatric Psychiatric: appropriate mood/affect, intact judgment & insight, memory intact, cooperative - Neurologic Neurologic: CNII-XII intact, moves all extremities Plan Activity: no driving until cleared by PCP, other (hip precautions) Weight Bearing Status: Full Weight Bearing Diet: low fat, low cholesterol Wound: keep clean and dry Special Instructions: record daily BP diary, physical therapy ([facility]) Durable Medical Equipment Needed Upon Discharge: Walker-Rolling, Wheelchair, Bedside Commode, other (DME- [facility]) Follow up with: GAEL RAPP MD [Primary Care Provider] - 3 Days SILVER WOODARD MD [Staff Physician] - 01/09/17 Prescriptions: Aspirin [Aspirin TAB] 325 mg PO BID #60 tablet Losartan [Cozaar] 12.5 mg PO QDAY #15 tablet Pantoprazole [Protonix TAB] 40 mg PO DAILY #30 tablet
== END 2017-01-07 14:41 | disposition home or self-care (01) | DRG 536 ==
LOC: 3B 19:40
PROVIDERS: ADMIT Family Medicine; ATTEND Family Medicine
DX: S72.001A Fracture of unspecified part of neck of right femur, initial encounter for closed fracture (principal); M06.9 Rheumatoid arthritis, unspecified; H40.9 Unspecified glaucoma; M81.0 Age-related osteoporosis without current pathological fracture; R26.81 Unsteadiness on feet; E87.6 Hypokalemia; K57.90 Diverticulosis of intestine, part unspecified, without perforation or abscess without bleeding; W18.39XA Other fall on same level, initial encounter; Z60.2 Problems related to living alone; Y93.89 Activity, other specified; Y92.89 Other specified places as the place of occurrence of the external cause; Y99.8 Other external cause status; Z98.42 Cataract extraction status, left eye; Z98.41 Cataract extraction status, right eye; Z90.710 Acquired absence of both cervix and uterus; Z88.2 Allergy status to sulfonamides; Z88.8 Allergy status to other drugs, medicaments and biological substances
CPT/HCPCS: 36415; 80048; 80053; 85025; 85027; J1650; J7512; J8610

== ENCOUNTER 2017-11-26 07:57 | Outpatient (CLI) | payer MEDICARE ==
--- NOTE | 2017-11-28 12:40 | Vascular Lab Report ---
Mesenteric arterial duplex Reason for exam: Abdominal pain Comments: Pre-radio evaluation of the celiac axis and superior mesenteric arteries show normal flow velocities without evidence of significant obstruction. The patient was then given a caloric challenge and serial examinations were done of the mesenteric arteries. Patient did not note any onset of pain. Approximately 5 minutes after the challenge there was some left flank pain the patient complained of. Velocities in the mesenteric arteries did not change during the evaluation. Impression: The study does not support a diagnosis of abdominal pain from mesenteric arterial insufficiency.
== END 2017-11-26 07:58 | disposition home or self-care (01) ==
LOC: VAS 07:57
PROVIDERS: ATTEND Surgery Vascular Surgery
DX: R10.10 Upper abdominal pain, unspecified (principal)
CPT/HCPCS: 93979

== ENCOUNTER 2017-12-29 10:43 | Day surgery (SDC) | payer MEDICARE ==
[~2017-12-29 10:43] MED LIST: ANCEF/STERILE WATER 2 GM/20 ML IV NR; HEPARIN SUB-Q NR; MARCAINE 0.25% INFILTRATI ONE
[2017-12-29] MEDS ORDERED: NACL 0.9% 1000 ML 1,000 ML ONE (11:32)
[2017-12-29] MEDS ORDERED: XYLOCAINE MPF 2% ONE (12:07)
[2017-12-29] MEDS ORDERED: DILAUDID ONE (12:07)
[2017-12-29] MEDS ORDERED: DIPRIVAN 10 MG/ML IV ONE (12:07)
--- NOTE | 2017-12-29 12:11 | Anesthesia Consultation ---
Anesthesia Consult and Med Hx Date of service: 12/29/17 - Airway Anesthetic Teeth Evaluation: Good ROM Head & Neck: Adequate Mental/Hyoid Distance: Adequate Mallampati Class: Class I Intubation Access Assessment: Good - Pulmonary Exam CTA: Yes - Cardiac Exam Cardiac Exam: RRR - Pre-Operative Health Status ASA Pre-Surgery Classification: ASA2 Proposed Anesthetic Plan: General - Pulmonary Hx Smoking: No - Cardiovascular System Hx Hypertension: Yes - Central Nervous System Hx Neuromuscular Disorder: Yes (RA) Hx Psychiatric Problems: No - Hematic Hx Anemia: Yes (RESOLVED WITH HYSTERECTOMY IN 72') - Other Systems Hx Alcohol Use: No Hx Substance Use: No Hx Cancer: No
--- NOTE | 2017-12-29 12:11 | Anesthesia Day of Surgery ---
Anesthesia Day of Surgery - Day of Surgery Patient Examined: Yes Patient H&P Reviewed: Yes Patient is NPO: Yes
[2017-12-29] MEDS ORDERED: MARCAINE 0.25% INFILTRATI ONE ×2 (12:19→13:20)
[2017-12-29] MEDS ORDERED: TORADOL IV PRN (12:30)
[2017-12-29] MEDS ORDERED: PEPCID PO NR (12:30)
[2017-12-29] MEDS ORDERED: DECADRON IV NR (12:30)
[2017-12-29] MEDS ORDERED: SUBLIMAZE ONE (12:41)
[2017-12-29] MEDS ORDERED: ePHEDrine SULFATE ONE (13:00)
[2017-12-29] MEDS ORDERED: VERSED IV NR (13:00)
[2017-12-29] MEDS ORDERED: DILAUDID IV PRN (13:00)
[2017-12-29] MEDS ORDERED: ZOFRAN IV NR (13:00)
--- NOTE | 2017-12-29 13:32 | Short Stay Summary ---
Short Stay Documentation Date of service: 12/29/17 - History H&P: obtained from office - Allergies and Medications Current Medications: Allergies celecoxib [From Celebrex] Allergy (Verified 12/21/17 15:43) Rash Sulfa (Sulfonamide Antibiotics) Allergy (Verified 12/21/17 15:43) Unknown PT STATED TOLD HER TO STATED IT DUE TO CELEBREX hydrocodone Adverse Reaction (Verified 12/21/17 15:43) Unknown HAS TAKEN IN PAST WITH NO PROBLEM. TOOK WITH OXYCODONE UNSURE WHICH CAUSED REACTION oxycodone Adverse Reaction (Verified 12/21/17 15:43) Shortness of Breath Home Medications Medication Instructions Recorded Confirmed Last Taken Type Methotrexate Sodium [Methotrexate] 2.5 mg PO QWEEK 04/18/16 12/29/17 12/25/17 History Prednisone 5 mg PO DAILY 04/18/16 12/29/17 12/28/17 History Timolol 0.5% [Timoptic] 1 drop OD DAILY 04/18/16 12/29/17 12/29/17 08:30 History Latanoprost 0.005% 1 drops OU QHS bottle 12/30/16 12/29/17 12/29/17 08:30 Rx traMADol [Ultram 50 MG tab] 100 mg PO Q6H PRN #1 tablet 01/07/17 12/29/17 09:30 Rx Active Medications Cefazolin Sodium (Ancef/Sterile Water 2 Gm/20 Ml) 2 gm IV PREOP NR Stop: 12/29/17 23:59 Dexamethasone (Decadron) 4 mg IV PREOP NR Stop: 12/29/17 17:00 Last Admin: 12/29/17 12:25 Dose: 4 mg Famotidine (Pepcid) 20 mg PO PREOP NR Stop: 12/29/17 18:00 Last Admin: 12/29/17 12:31 Dose: 20 mg Heparin Sodium (Porcine) (Heparin) 5,000 unit SUB-Q PREOP NR Stop: 12/29/17 23:59 Last Admin: 12/29/17 11:56 Dose: 5,000 unit Hydromorphone HCl (Dilaudid) 0.25 mg IV Q10MIN PRN PRN Reason: Pain, Moderate (4-6) Stop: 12/29/17 18:00 Ketorolac Tromethamine (Toradol) 15 mg IV ONCE PRN PRN Reason: Pain, Mild (1-3) Stop: 12/29/17 19:00 Midazolam HCl (Versed) 2 mg IV PREOP NR Stop: 12/29/17 23:59 Last Admin: 12/29/17 12:28 Dose: 2 mg Ondansetron HCl (Zofran) 4 mg IV PREOP NR Stop: 12/29/17 19:00 Last Admin: 12/29/17 12:29 Dose: 4 mg - Brief post op/procedure progress note Date of procedure: 12/29/17 Pre-op diagnosis: LLQ abdominal pain Post-op diagnosis: same Procedure: Laparoscopic lysis of adhesions Anesthesia: GETA, local Surgeon: NICO KENDRICK Estimated blood loss: none Pathology: none Condition: stable - Disposition Condition at discharge: Good Disposition: DC-01 TO HOME OR SELFCARE Short Stay Discharge Plan Activity: no restrictions Diet: regular Wound: remove dressing (12/31/17 and then may shower) Follow up with: JD ROY MD [Primary Care Provider] - 7 Days NICO KENDRICK MD [Staff Physician] - 7 Days
--- NOTE | 2017-12-29 14:18 | Operative Report ---
PREOPERATIVE DIAGNOSIS: Left lower quadrant abdominal pain. POSTOPERATIVE DIAGNOSIS: Left lower quadrant abdominal pain. PROCEDURE: Laparoscopic lysis of adhesions. SURGEON: Bronson Resendez MD VOTATOR MACHINE OPERATOR: None. ANESTHESIA: General and local. ESTIMATED BLOOD LOSS: Minimal. SPECIMEN: None. COMPLICATIONS: None. INDICATIONS: This is a 77-year-old female who has a left lower quadrant abdominal pain, presents now for laparoscopic exploration with probable lysis of adhesions. OPERATIVE COURSE: The patient was brought to the operating room, identified, placed in the supine position. General anesthesia was achieved. Her abdomen was prepped and draped in usual manner. Prior to all incisions, the area was infiltrated with 0.25% Marcaine. A right lateral 5 mm incision was made using a Veress needle technique. The abdomen was insufflated to 15 mmHg pressure. A 5 mm trocar was inserted using a 30-degree 5-mm telescope. The other trocars were placed under direct vision, which included a right lower quadrant and right upper quadrant 5 mm ports. The abdomen was explored. There was an omental adhesion to the fossa ligament as it went to the umbilicus. This was taken down with sharp and cautery dissection, then there were minor adhesions between the colon and the left lateral upper abdomen. These were taken down with a purely sharp dissection, but the majority of adhesions were the left lower quadrant between the sigmoid colon and left lateral pelvic wall and the left ovary, which was normal in appearance. These adhesions were taken with sharp, blunt, and some minor cautery dissection. There were also adhesions between the rectum and the bladder, which were taken down with purely sharp dissection. Once this was done, we reexamined the abdominal cavity. The bowels the colon and the rectum were all normal and intact. No signs of any other injuries or pathology was seen. We therefore removed the ports under direct vision. Once we are sure we had good hemostasis, then the CO2 was removed, the incisions were then closed at the skin level with a 4-0 Vicryl suture, Steri-Strips and bandage. She tolerated the procedure well without complications. JOB# [id number] CARA/YAZAN
[2017-12-29 15:07] VITALS: BP 136/79
--- NOTE | 2017-12-29 17:10 | Post Anesthesia Evaluation ---
- Post Anesthesia Evaluation Patient Participated: Yes Airway Patent: Yes Stable Respiratory Function: Yes Nausea/Vomiting: No Temp > 96.8F: Yes Pain Manageable: Yes Adequeate Hydration: Yes Anesthesia Complications: No
== END 2017-12-29 15:08 | disposition home or self-care (01) ==
LOC: OR 10:43
PROVIDERS: ATTEND Surgery
DX: K66.0 Peritoneal adhesions (postprocedural) (postinfection) (principal); I10 Essential (primary) hypertension; Z88.2 Allergy status to sulfonamides
CPT/HCPCS: 44180; J0690; J1100; J1170; J1644; J2250; J2405; J2704; J3010; J7030

== ENCOUNTER 2019-08-25 09:43 | Outpatient (CLI) | payer MEDICARE ==
[2019-08-25] MEDS ORDERED: SODIUM CHLORIDE 0.9% IRR 500 ML BOTTLE IR ONE (11:00)
[2019-08-25] MEDS ORDERED: LIDOCAINE (4%) 40 MG/ML TOPICAL SOLN 50 ML BOTTLE TP ONE (11:17)
== END 2019-08-25 09:44 | disposition home or self-care (01) ==
LOC: WOUND 09:43
PROVIDERS: ATTEND Surgery
DX: L97.212 Non-pressure chronic ulcer of right calf with fat layer exposed (principal); K21.9 Gastro-esophageal reflux disease without esophagitis; I10 Essential (primary) hypertension; G62.9 Polyneuropathy, unspecified; M05.741 Rheumatoid arthritis with rheumatoid factor of right hand without organ or systems involvement; M19.90 Unspecified osteoarthritis, unspecified site; F41.9 Anxiety disorder, unspecified; F32.9 Major depressive disorder, single episode, unspecified
CPT/HCPCS: 11042; G0463; 99214

== ENCOUNTER 2019-09-01 10:30 | Outpatient (CLI) | payer MEDICARE ==
[2019-09-01] MEDS ORDERED: LIDOCAINE (4%) 40 MG/ML TOPICAL SOLN 50 ML BOTTLE TP ONE (10:31)
== END 2019-09-01 10:31 | disposition home or self-care (01) ==
LOC: WOUND 10:30
PROVIDERS: ATTEND Surgery
DX: L97.212 Non-pressure chronic ulcer of right calf with fat layer exposed (principal); K21.9 Gastro-esophageal reflux disease without esophagitis; I10 Essential (primary) hypertension; G62.9 Polyneuropathy, unspecified; M05.741 Rheumatoid arthritis with rheumatoid factor of right hand without organ or systems involvement; M19.90 Unspecified osteoarthritis, unspecified site; F41.9 Anxiety disorder, unspecified; F32.9 Major depressive disorder, single episode, unspecified

== ENCOUNTER 2019-09-08 10:22 | Outpatient (CLI) | payer MEDICARE ==
[2019-09-08] MEDS ORDERED: LIDOCAINE (4%) 40 MG/ML TOPICAL SOLN 50 ML BOTTLE TP ONE (10:41)
[2019-09-08] MEDS ORDERED: SODIUM HYPOCHLORITE, DAKIN'S FULL STRENGTH (0.5%) 473 ML TOPICAL SOLN TP ONE (12:18)
== END 2019-09-08 10:23 | disposition home or self-care (01) ==
LOC: WOUND 10:22
PROVIDERS: ATTEND Surgery
DX: L97.212 Non-pressure chronic ulcer of right calf with fat layer exposed (principal); K21.9 Gastro-esophageal reflux disease without esophagitis; I10 Essential (primary) hypertension; G62.9 Polyneuropathy, unspecified; M05.741 Rheumatoid arthritis with rheumatoid factor of right hand without organ or systems involvement; M19.90 Unspecified osteoarthritis, unspecified site; F41.9 Anxiety disorder, unspecified; F32.9 Major depressive disorder, single episode, unspecified

== ENCOUNTER 2019-10-27 10:18 | Outpatient (CLI) | payer MEDICARE ==
[2019-10-27] MEDS ORDERED: LIDOCAINE (4%) 40 MG/ML TOPICAL SOLN 50 ML BOTTLE TP ONE (11:30)
== END 2019-10-27 10:19 | disposition home or self-care (01) ==
LOC: WOUND 10:18
PROVIDERS: ATTEND Surgery
DX: L97.212 Non-pressure chronic ulcer of right calf with fat layer exposed (principal); K21.9 Gastro-esophageal reflux disease without esophagitis; I10 Essential (primary) hypertension; G62.9 Polyneuropathy, unspecified; H40.9 Unspecified glaucoma; M05.741 Rheumatoid arthritis with rheumatoid factor of right hand without organ or systems involvement; M19.90 Unspecified osteoarthritis, unspecified site; F41.9 Anxiety disorder, unspecified; F32.9 Major depressive disorder, single episode, unspecified

== ENCOUNTER 2019-11-03 10:18 | Outpatient (CLI) | payer MEDICARE ==
[2019-11-03] MEDS ORDERED: LIDOCAINE (4%) 40 MG/ML TOPICAL SOLN 50 ML BOTTLE TP ONE (10:22)
== END 2019-11-03 10:19 | disposition home or self-care (01) ==
LOC: WOUND 10:18
PROVIDERS: ATTEND Surgery
DX: L97.212 Non-pressure chronic ulcer of right calf with fat layer exposed (principal); K21.9 Gastro-esophageal reflux disease without esophagitis; I10 Essential (primary) hypertension; G62.9 Polyneuropathy, unspecified; H40.9 Unspecified glaucoma; M05.741 Rheumatoid arthritis with rheumatoid factor of right hand without organ or systems involvement; M19.90 Unspecified osteoarthritis, unspecified site; F41.9 Anxiety disorder, unspecified; F32.9 Major depressive disorder, single episode, unspecified

== ENCOUNTER 2019-11-10 10:28 | Outpatient (CLI) | payer MEDICARE ==
[2019-11-10] MEDS ORDERED: LIDOCAINE (4%) 40 MG/ML TOPICAL SOLN 50 ML BOTTLE TP ONE (10:47)
== END 2019-11-10 10:29 | disposition home or self-care (01) ==
LOC: WOUND 10:28
PROVIDERS: ATTEND Surgery
DX: L97.212 Non-pressure chronic ulcer of right calf with fat layer exposed (principal); K21.9 Gastro-esophageal reflux disease without esophagitis; I10 Essential (primary) hypertension; G62.9 Polyneuropathy, unspecified; H40.9 Unspecified glaucoma; M05.741 Rheumatoid arthritis with rheumatoid factor of right hand without organ or systems involvement; M19.90 Unspecified osteoarthritis, unspecified site; F41.9 Anxiety disorder, unspecified; F32.9 Major depressive disorder, single episode, unspecified

== ENCOUNTER 2019-11-17 10:16 | Outpatient (CLI) | payer MEDICARE ==
[2019-11-17] MEDS ORDERED: LIDOCAINE (4%) 40 MG/ML TOPICAL SOLN 50 ML BOTTLE TP ONE (10:17)
== END 2019-11-17 10:17 | disposition home or self-care (01) ==
LOC: WOUND 10:16
PROVIDERS: ATTEND Surgery
DX: L97.212 Non-pressure chronic ulcer of right calf with fat layer exposed (principal); K21.9 Gastro-esophageal reflux disease without esophagitis; I10 Essential (primary) hypertension; G62.9 Polyneuropathy, unspecified; H40.9 Unspecified glaucoma; M05.741 Rheumatoid arthritis with rheumatoid factor of right hand without organ or systems involvement; M19.90 Unspecified osteoarthritis, unspecified site; F41.9 Anxiety disorder, unspecified; F32.9 Major depressive disorder, single episode, unspecified

== ENCOUNTER 2019-11-24 10:27 | Outpatient (CLI) | payer MEDICARE ==
[2019-11-24] MEDS ORDERED: LIDOCAINE (4%) 40 MG/ML TOPICAL SOLN 50 ML BOTTLE TP ONE (10:32)
== END 2019-11-24 10:28 | disposition home or self-care (01) ==
LOC: WOUND 10:27
PROVIDERS: ATTEND Surgery
DX: L97.212 Non-pressure chronic ulcer of right calf with fat layer exposed (principal); K21.9 Gastro-esophageal reflux disease without esophagitis; I10 Essential (primary) hypertension; G62.9 Polyneuropathy, unspecified; H40.9 Unspecified glaucoma; M05.741 Rheumatoid arthritis with rheumatoid factor of right hand without organ or systems involvement; M19.90 Unspecified osteoarthritis, unspecified site; F41.9 Anxiety disorder, unspecified; F32.9 Major depressive disorder, single episode, unspecified

== ENCOUNTER 2019-12-15 10:19 | Outpatient (CLI) | payer MEDICARE | END 2019-12-15 10:20 | disposition home or self-care (01) | LOC: WOUND 10:19 | PROVIDERS: ATTEND Surgery | DX: L97.212 Non-pressure chronic ulcer of right calf with fat layer exposed (principal); I10 Essential (primary) hypertension; G62.9 Polyneuropathy, unspecified; M05.741 Rheumatoid arthritis with rheumatoid factor of right hand without organ or systems involvement; M19.90 Unspecified osteoarthritis, unspecified site; F41.9 Anxiety disorder, unspecified; F32.9 Major depressive disorder, single episode, unspecified | CPT/HCPCS: 99214; G0463 ==

== ENCOUNTER 2019-12-22 10:16 | Outpatient (CLI) | payer MEDICARE | END 2019-12-22 10:17 | disposition home or self-care (01) | LOC: WOUND 10:16 | PROVIDERS: ATTEND Surgery | DX: S81.801D Unspecified open wound, right lower leg, subsequent encounter (principal); K21.9 Gastro-esophageal reflux disease without esophagitis; I10 Essential (primary) hypertension; G62.9 Polyneuropathy, unspecified; M05.741 Rheumatoid arthritis with rheumatoid factor of right hand without organ or systems involvement; M19.90 Unspecified osteoarthritis, unspecified site; F41.9 Anxiety disorder, unspecified; F32.9 Major depressive disorder, single episode, unspecified; X58.XXXD Exposure to other specified factors, subsequent encounter | CPT/HCPCS: 99213; G0463 ==

== ENCOUNTER 2020-08-29 09:25 | Outpatient (CLI) | payer MEDICARE ==
--- NOTE | 2020-08-29 12:39 | Vascular Lab Report ---
DUPLEX DOPPLER LOWER EXTREMITY VEINS, BILATERAL INDICATION: LOWER EXTREMITY EDEMA, RHEUMATOID ARTHRITIS. TECHNIQUE: Duplex doppler imaging was performed through the veins of both lower extremities using venous brando bianca and other maneuvers. COMPARISON: No relevant prior imaging study available. FINDINGS: Right Common femoral vein: Negative. Right Superficial femoral vein: Negative. Right Popliteal vein: Negative. Right Calf veins: Negative. Left Common femoral vein: Negative. Left Superficial femoral vein: Negative. Left Popliteal vein: Negative. Left Calf veins: Negative. Additional findings: None.. IMPRESSION: No sonographic evidence of acute or chronic DVT within the bilateral lower extremities. Signer Name: Livan Robles MD Signed: 08/29/2020 12:35 PM Workstation Name: [id number]
== END 2020-08-29 09:26 | disposition home or self-care (01) ==
LOC: VAS 09:25
PROVIDERS: ATTEND Internal Medicine Cardiovascular Disease
DX: R60.0 Localized edema (principal); L81.9 Disorder of pigmentation, unspecified; Z87.39 Personal history of other diseases of the musculoskeletal system and connective tissue
CPT/HCPCS: 93970

== ENCOUNTER 2020-08-30 09:45 | Outpatient (CLI) | payer MEDICARE ==
--- NOTE | 2020-08-30 13:17 | Vascular Lab Report ---
Limited TRACEY Ultrasound HISTORY: LOWER EXTREMITY EDEMA. TECHNIQUE: Grayscale and color imaging performed. COMPARISON: None IMPRESSION: The ABIs are noncompressible which suggests calcified vessels. Signer Name: Marty Le MD Signed: 08/30/2020 1:13 PM Workstation Name: [id number]
== END 2020-08-30 09:46 | disposition home or self-care (01) ==
LOC: VAS 09:45
PROVIDERS: ATTEND Internal Medicine Cardiovascular Disease
DX: R60.0 Localized edema (principal); Z87.39 Personal history of other diseases of the musculoskeletal system and connective tissue
CPT/HCPCS: 93922

== ENCOUNTER 2021-11-27 10:55 | Outpatient (CLI) | payer MEDICARE | END 2021-11-27 10:56 | disposition home or self-care (01) | LOC: WOUND 10:55 | PROVIDERS: ATTEND Surgery | DX: S81.802A Unspecified open wound, left lower leg, initial encounter (principal); I70.248 Atherosclerosis of native arteries of left leg with ulceration of other part of lower leg; L97.822 Non-pressure chronic ulcer of other part of left lower leg with fat layer exposed; I87.8 Other specified disorders of veins; I70.242 Atherosclerosis of native arteries of left leg with ulceration of calf; L97.222 Non-pressure chronic ulcer of left calf with fat layer exposed; I10 Essential (primary) hypertension; K21.9 Gastro-esophageal reflux disease without esophagitis; G62.9 Polyneuropathy, unspecified; M06.9 Rheumatoid arthritis, unspecified; M81.0 Age-related osteoporosis without current pathological fracture; H40.9 Unspecified glaucoma; F41.9 Anxiety disorder, unspecified; F32.A Depression, unspecified; Z79.899 Other long term (current) drug therapy; W20.8XXA Other cause of strike by thrown, projected or falling object, initial encounter; Y93.89 Activity, other specified; Y92.89 Other specified places as the place of occurrence of the external cause; Y99.8 Other external cause status | CPT/HCPCS: 11042; G0463; 99214 ==

== ENCOUNTER 2021-12-11 09:56 | Outpatient (CLI) | payer MEDICARE ==
[2021-12-11] MEDS ORDERED: LIDOCAINE (4%) 40 MG/ML TOPICAL SOLN 50 ML BOTTLE TP SCH (11:00)
== END 2021-12-11 09:57 | disposition home or self-care (01) ==
LOC: WOUND 09:56
PROVIDERS: ATTEND Surgery
DX: S81.802D Unspecified open wound, left lower leg, subsequent encounter (principal); T24.202A Burn of second degree of unspecified site of left lower limb, except ankle and foot, initial encounter; T31.0 Burns involving less than 10% of body surface; I70.248 Atherosclerosis of native arteries of left leg with ulceration of other part of lower leg; L97.822 Non-pressure chronic ulcer of other part of left lower leg with fat layer exposed; I70.242 Atherosclerosis of native arteries of left leg with ulceration of calf; L97.222 Non-pressure chronic ulcer of left calf with fat layer exposed; I10 Essential (primary) hypertension; G62.9 Polyneuropathy, unspecified; H40.9 Unspecified glaucoma; M06.9 Rheumatoid arthritis, unspecified; M81.0 Age-related osteoporosis without current pathological fracture; Z79.899 Other long term (current) drug therapy; Z90.49 Acquired absence of other specified parts of digestive tract; Z90.710 Acquired absence of both cervix and uterus; Z98.890 Other specified postprocedural states; X08.8XXA Exposure to other specified smoke, fire and flames, initial encounter; W20.8XXD Other cause of strike by thrown, projected or falling object, subsequent encounter; Y93.89 Activity, other specified; Y92.89 Other specified places as the place of occurrence of the external cause; Y99.8 Other external cause status

== ENCOUNTER 2021-12-25 14:26 | Outpatient (CLI) | payer MEDICARE ==
[2021-12-25] MEDS ORDERED: LIDOCAINE (4%) 40 MG/ML TOPICAL SOLN 50 ML BOTTLE TP SCH (15:00)
== END 2021-12-25 14:27 | disposition home or self-care (01) ==
LOC: WOUND 14:26
PROVIDERS: ATTEND Surgery
DX: S81.802D Unspecified open wound, left lower leg, subsequent encounter (principal); T24.202D Burn of second degree of unspecified site of left lower limb, except ankle and foot, subsequent encounter; T31.0 Burns involving less than 10% of body surface; I70.248 Atherosclerosis of native arteries of left leg with ulceration of other part of lower leg; L97.822 Non-pressure chronic ulcer of other part of left lower leg with fat layer exposed; I70.242 Atherosclerosis of native arteries of left leg with ulceration of calf; L97.222 Non-pressure chronic ulcer of left calf with fat layer exposed; I10 Essential (primary) hypertension; G62.9 Polyneuropathy, unspecified; H40.9 Unspecified glaucoma; M06.9 Rheumatoid arthritis, unspecified; M81.0 Age-related osteoporosis without current pathological fracture; Z79.899 Other long term (current) drug therapy; Z79.82 Long term (current) use of aspirin; Z90.49 Acquired absence of other specified parts of digestive tract; Z90.710 Acquired absence of both cervix and uterus; Z86.73 Personal history of transient ischemic attack (TIA), and cerebral infarction without residual deficits; Z98.890 Other specified postprocedural states; W20.8XXD Other cause of strike by thrown, projected or falling object, subsequent encounter; X08.8XXD Exposure to other specified smoke, fire and flames, subsequent encounter

== ENCOUNTER 2022-01-01 11:23 | Outpatient (CLI) | payer MEDICARE ==
[2022-01-01] MEDS ORDERED: LIDOCAINE (4%) 40 MG/ML TOPICAL SOLN 50 ML BOTTLE TP SCH (12:00)
== END 2022-01-01 11:24 | disposition home or self-care (01) ==
LOC: WOUND 11:23
PROVIDERS: ATTEND Surgery
DX: S81.802D Unspecified open wound, left lower leg, subsequent encounter (principal); T24.202D Burn of second degree of unspecified site of left lower limb, except ankle and foot, subsequent encounter; T31.0 Burns involving less than 10% of body surface; I70.248 Atherosclerosis of native arteries of left leg with ulceration of other part of lower leg; L97.822 Non-pressure chronic ulcer of other part of left lower leg with fat layer exposed; I70.242 Atherosclerosis of native arteries of left leg with ulceration of calf; L97.222 Non-pressure chronic ulcer of left calf with fat layer exposed; I10 Essential (primary) hypertension; G62.9 Polyneuropathy, unspecified; H40.9 Unspecified glaucoma; M06.9 Rheumatoid arthritis, unspecified; M81.0 Age-related osteoporosis without current pathological fracture; Z79.899 Other long term (current) drug therapy; Z79.82 Long term (current) use of aspirin; Z90.49 Acquired absence of other specified parts of digestive tract; Z90.710 Acquired absence of both cervix and uterus; Z86.73 Personal history of transient ischemic attack (TIA), and cerebral infarction without residual deficits; Z98.890 Other specified postprocedural states; X08.8XXD Exposure to other specified smoke, fire and flames, subsequent encounter; W20.8XXD Other cause of strike by thrown, projected or falling object, subsequent encounter

== ENCOUNTER 2022-01-08 10:48 | Outpatient (CLI) | payer MEDICARE ==
[2022-01-08] MEDS ORDERED: LIDOCAINE (4%) 40 MG/ML TOPICAL SOLN 50 ML BOTTLE TP SCH (11:00)
== END 2022-01-08 10:49 | disposition home or self-care (01) ==
LOC: WOUND 10:48
PROVIDERS: ATTEND Surgery
DX: S81.802D Unspecified open wound, left lower leg, subsequent encounter (principal); T24.202D Burn of second degree of unspecified site of left lower limb, except ankle and foot, subsequent encounter; T31.0 Burns involving less than 10% of body surface; I70.248 Atherosclerosis of native arteries of left leg with ulceration of other part of lower leg; L97.822 Non-pressure chronic ulcer of other part of left lower leg with fat layer exposed; I70.242 Atherosclerosis of native arteries of left leg with ulceration of calf; L97.222 Non-pressure chronic ulcer of left calf with fat layer exposed; I10 Essential (primary) hypertension; G62.9 Polyneuropathy, unspecified; H40.9 Unspecified glaucoma; M06.9 Rheumatoid arthritis, unspecified; M81.0 Age-related osteoporosis without current pathological fracture; Z79.899 Other long term (current) drug therapy; Z79.82 Long term (current) use of aspirin; Z90.49 Acquired absence of other specified parts of digestive tract; Z90.710 Acquired absence of both cervix and uterus; Z86.73 Personal history of transient ischemic attack (TIA), and cerebral infarction without residual deficits; Z98.890 Other specified postprocedural states; X08.8XXD Exposure to other specified smoke, fire and flames, subsequent encounter; W20.8XXD Other cause of strike by thrown, projected or falling object, subsequent encounter

== ENCOUNTER 2022-01-15 11:59 | Outpatient (CLI) | payer MEDICARE ==
[2022-01-15] MEDS ORDERED: LIDOCAINE (4%) 40 MG/ML TOPICAL SOLN 50 ML BOTTLE TP SCH (14:30)
== END 2022-01-15 12:00 | disposition home or self-care (01) ==
LOC: WOUND 11:59
PROVIDERS: ATTEND Surgery
DX: S81.802D Unspecified open wound, left lower leg, subsequent encounter (principal); T24.202D Burn of second degree of unspecified site of left lower limb, except ankle and foot, subsequent encounter; T31.0 Burns involving less than 10% of body surface; I70.248 Atherosclerosis of native arteries of left leg with ulceration of other part of lower leg; L97.822 Non-pressure chronic ulcer of other part of left lower leg with fat layer exposed; I70.242 Atherosclerosis of native arteries of left leg with ulceration of calf; L97.222 Non-pressure chronic ulcer of left calf with fat layer exposed; I10 Essential (primary) hypertension; G62.9 Polyneuropathy, unspecified; H40.9 Unspecified glaucoma; M06.9 Rheumatoid arthritis, unspecified; M81.0 Age-related osteoporosis without current pathological fracture; Z79.899 Other long term (current) drug therapy; Z79.82 Long term (current) use of aspirin; Z90.49 Acquired absence of other specified parts of digestive tract; Z90.710 Acquired absence of both cervix and uterus; Z86.73 Personal history of transient ischemic attack (TIA), and cerebral infarction without residual deficits; Z98.890 Other specified postprocedural states; X08.8XXD Exposure to other specified smoke, fire and flames, subsequent encounter; W20.8XXD Other cause of strike by thrown, projected or falling object, subsequent encounter

== ENCOUNTER 2022-01-29 10:58 | Outpatient (CLI) | payer MEDICARE ==
[2022-01-29] MEDS ORDERED: LIDOCAINE (4%) 40 MG/ML TOPICAL SOLN 50 ML BOTTLE TP ONE (11:03)
== END 2022-01-29 10:59 | disposition home or self-care (01) ==
LOC: WOUND 10:58
PROVIDERS: ATTEND Surgery
DX: S81.802D Unspecified open wound, left lower leg, subsequent encounter (principal); I70.248 Atherosclerosis of native arteries of left leg with ulceration of other part of lower leg; L97.822 Non-pressure chronic ulcer of other part of left lower leg with fat layer exposed; I70.242 Atherosclerosis of native arteries of left leg with ulceration of calf; L97.222 Non-pressure chronic ulcer of left calf with fat layer exposed; I10 Essential (primary) hypertension; G62.9 Polyneuropathy, unspecified; H40.9 Unspecified glaucoma; M06.9 Rheumatoid arthritis, unspecified; M81.0 Age-related osteoporosis without current pathological fracture; Z79.899 Other long term (current) drug therapy; Z79.82 Long term (current) use of aspirin; Z98.890 Other specified postprocedural states; W20.8XXD Other cause of strike by thrown, projected or falling object, subsequent encounter

== ENCOUNTER 2022-02-12 11:18 | Outpatient (CLI) | payer MEDICARE ==
[2022-02-12] MEDS ORDERED: LIDOCAINE (4%) 40 MG/ML TOPICAL SOLN 50 ML BOTTLE TP ONE (15:42)
== END 2022-02-12 11:19 | disposition home or self-care (01) ==
LOC: WOUND 11:18
PROVIDERS: ATTEND Surgery
DX: S81.802D Unspecified open wound, left lower leg, subsequent encounter (principal); I70.248 Atherosclerosis of native arteries of left leg with ulceration of other part of lower leg; L97.822 Non-pressure chronic ulcer of other part of left lower leg with fat layer exposed; I70.242 Atherosclerosis of native arteries of left leg with ulceration of calf; L97.222 Non-pressure chronic ulcer of left calf with fat layer exposed; I10 Essential (primary) hypertension; G62.9 Polyneuropathy, unspecified; H40.9 Unspecified glaucoma; M06.9 Rheumatoid arthritis, unspecified; M81.0 Age-related osteoporosis without current pathological fracture; Z79.899 Other long term (current) drug therapy; Z79.82 Long term (current) use of aspirin; W20.8XXD Other cause of strike by thrown, projected or falling object, subsequent encounter

== ENCOUNTER 2022-02-19 11:23 | Outpatient (CLI) | payer MEDICARE ==
[2022-02-19] MEDS ORDERED: LIDOCAINE (4%) 40 MG/ML TOPICAL SOLN 50 ML BOTTLE TP ONE (11:26)
== END 2022-02-19 11:24 | disposition home or self-care (01) ==
LOC: WOUND 11:23
PROVIDERS: ATTEND Surgery
DX: S81.802D Unspecified open wound, left lower leg, subsequent encounter (principal); I70.248 Atherosclerosis of native arteries of left leg with ulceration of other part of lower leg; L97.822 Non-pressure chronic ulcer of other part of left lower leg with fat layer exposed; I70.242 Atherosclerosis of native arteries of left leg with ulceration of calf; L97.222 Non-pressure chronic ulcer of left calf with fat layer exposed; I10 Essential (primary) hypertension; G62.9 Polyneuropathy, unspecified; H40.9 Unspecified glaucoma; M06.9 Rheumatoid arthritis, unspecified; M81.0 Age-related osteoporosis without current pathological fracture; Z79.899 Other long term (current) drug therapy; Z79.82 Long term (current) use of aspirin; W20.8XXD Other cause of strike by thrown, projected or falling object, subsequent encounter

== ENCOUNTER 2022-02-26 10:47 | Outpatient (CLI) | payer MEDICARE ==
[2022-02-26] MEDS ORDERED: LIDOCAINE (4%) 40 MG/ML TOPICAL SOLN 50 ML BOTTLE TP SCH (11:00)
== END 2022-02-26 10:48 | disposition home or self-care (01) ==
LOC: WOUND 10:47
PROVIDERS: ATTEND Surgery
DX: S81.802D Unspecified open wound, left lower leg, subsequent encounter (principal); I70.248 Atherosclerosis of native arteries of left leg with ulceration of other part of lower leg; L97.822 Non-pressure chronic ulcer of other part of left lower leg with fat layer exposed; I70.242 Atherosclerosis of native arteries of left leg with ulceration of calf; L97.222 Non-pressure chronic ulcer of left calf with fat layer exposed; I10 Essential (primary) hypertension; G62.9 Polyneuropathy, unspecified; H40.9 Unspecified glaucoma; M06.9 Rheumatoid arthritis, unspecified; M81.0 Age-related osteoporosis without current pathological fracture; Z79.899 Other long term (current) drug therapy; Z79.82 Long term (current) use of aspirin; W20.8XXD Other cause of strike by thrown, projected or falling object, subsequent encounter

== ENCOUNTER 2022-03-05 11:22 | Outpatient (CLI) | payer MEDICARE ==
[2022-03-05] MEDS ORDERED: LIDOCAINE (4%) 40 MG/ML TOPICAL SOLN 50 ML BOTTLE TP ONE (12:05)
== END 2022-03-05 11:23 | disposition home or self-care (01) ==
LOC: WOUND 11:22
PROVIDERS: ATTEND Surgery
DX: S81.802D Unspecified open wound, left lower leg, subsequent encounter (principal); I70.248 Atherosclerosis of native arteries of left leg with ulceration of other part of lower leg; L97.822 Non-pressure chronic ulcer of other part of left lower leg with fat layer exposed; I70.242 Atherosclerosis of native arteries of left leg with ulceration of calf; L97.222 Non-pressure chronic ulcer of left calf with fat layer exposed; I10 Essential (primary) hypertension; G62.9 Polyneuropathy, unspecified; H40.9 Unspecified glaucoma; M06.9 Rheumatoid arthritis, unspecified; M81.0 Age-related osteoporosis without current pathological fracture; Z86.73 Personal history of transient ischemic attack (TIA), and cerebral infarction without residual deficits; Z79.899 Other long term (current) drug therapy; Z79.82 Long term (current) use of aspirin; W20.8XXD Other cause of strike by thrown, projected or falling object, subsequent encounter

== ENCOUNTER 2022-03-12 11:32 | Outpatient (CLI) | payer MEDICARE ==
[2022-03-12] MEDS ORDERED: LIDOCAINE (4%) 40 MG/ML TOPICAL SOLN 50 ML BOTTLE TP ONE (12:16)
== END 2022-03-12 11:33 | disposition home or self-care (01) ==
LOC: WOUND 11:32
PROVIDERS: ATTEND Surgery
DX: S81.802D Unspecified open wound, left lower leg, subsequent encounter (principal); I70.248 Atherosclerosis of native arteries of left leg with ulceration of other part of lower leg; L97.822 Non-pressure chronic ulcer of other part of left lower leg with fat layer exposed; I70.242 Atherosclerosis of native arteries of left leg with ulceration of calf; L97.222 Non-pressure chronic ulcer of left calf with fat layer exposed; I10 Essential (primary) hypertension; G62.9 Polyneuropathy, unspecified; H40.9 Unspecified glaucoma; M06.9 Rheumatoid arthritis, unspecified; M81.0 Age-related osteoporosis without current pathological fracture; Z86.73 Personal history of transient ischemic attack (TIA), and cerebral infarction without residual deficits; Z79.899 Other long term (current) drug therapy; Z79.82 Long term (current) use of aspirin; W20.8XXD Other cause of strike by thrown, projected or falling object, subsequent encounter

== ENCOUNTER 2022-04-09 10:29 | Outpatient (CLI) | payer MEDICARE ==
[2022-04-09] MEDS ORDERED: LIDOCAINE (4%) 40 MG/ML TOPICAL SOLN 50 ML BOTTLE TP ONE (12:00)
== END 2022-04-09 10:30 | disposition home or self-care (01) ==
LOC: WOUND 10:29
PROVIDERS: ATTEND Surgery
DX: S81.802D Unspecified open wound, left lower leg, subsequent encounter (principal); I70.248 Atherosclerosis of native arteries of left leg with ulceration of other part of lower leg; L97.822 Non-pressure chronic ulcer of other part of left lower leg with fat layer exposed; I70.242 Atherosclerosis of native arteries of left leg with ulceration of calf; L97.222 Non-pressure chronic ulcer of left calf with fat layer exposed; I10 Essential (primary) hypertension; G62.9 Polyneuropathy, unspecified; H40.9 Unspecified glaucoma; M06.9 Rheumatoid arthritis, unspecified; M81.0 Age-related osteoporosis without current pathological fracture; Z86.73 Personal history of transient ischemic attack (TIA), and cerebral infarction without residual deficits; Z79.899 Other long term (current) drug therapy; Z79.82 Long term (current) use of aspirin; W20.8XXD Other cause of strike by thrown, projected or falling object, subsequent encounter

== ENCOUNTER 2022-04-14 10:55 | Outpatient (CLI) | payer MEDICARE ==
[2022-04-14] MEDS ORDERED: LIDOCAINE (4%) 40 MG/ML TOPICAL SOLN 50 ML BOTTLE TP ONE (11:04)
== END 2022-04-14 10:56 | disposition home or self-care (01) ==
LOC: WOUND 10:55
PROVIDERS: ATTEND Surgery
DX: S81.802D Unspecified open wound, left lower leg, subsequent encounter (principal); I70.248 Atherosclerosis of native arteries of left leg with ulceration of other part of lower leg; L97.822 Non-pressure chronic ulcer of other part of left lower leg with fat layer exposed; I70.242 Atherosclerosis of native arteries of left leg with ulceration of calf; L97.222 Non-pressure chronic ulcer of left calf with fat layer exposed; I10 Essential (primary) hypertension; G62.9 Polyneuropathy, unspecified; H40.9 Unspecified glaucoma; M06.9 Rheumatoid arthritis, unspecified; M81.0 Age-related osteoporosis without current pathological fracture; Z86.73 Personal history of transient ischemic attack (TIA), and cerebral infarction without residual deficits; Z79.899 Other long term (current) drug therapy; Z79.82 Long term (current) use of aspirin; W20.8XXD Other cause of strike by thrown, projected or falling object, subsequent encounter

== ENCOUNTER 2022-04-30 10:48 | Outpatient (CLI) | payer MEDICARE ==
[2022-04-30] MEDS ORDERED: LIDOCAINE (4%) 40 MG/ML TOPICAL SOLN 50 ML BOTTLE TP ONE (10:54)
== END 2022-04-30 10:49 | disposition home or self-care (01) ==
LOC: WOUND 10:48
PROVIDERS: ATTEND Surgery
DX: S81.802D Unspecified open wound, left lower leg, subsequent encounter (principal); I70.248 Atherosclerosis of native arteries of left leg with ulceration of other part of lower leg; L97.822 Non-pressure chronic ulcer of other part of left lower leg with fat layer exposed; I70.242 Atherosclerosis of native arteries of left leg with ulceration of calf; L97.222 Non-pressure chronic ulcer of left calf with fat layer exposed; I10 Essential (primary) hypertension; G62.9 Polyneuropathy, unspecified; H40.9 Unspecified glaucoma; M06.9 Rheumatoid arthritis, unspecified; M81.0 Age-related osteoporosis without current pathological fracture; Z86.73 Personal history of transient ischemic attack (TIA), and cerebral infarction without residual deficits; Z79.899 Other long term (current) drug therapy; Z79.82 Long term (current) use of aspirin; W20.8XXD Other cause of strike by thrown, projected or falling object, subsequent encounter
CPT/HCPCS: 99213; G0463